=== PATIENT | female | born 1985 | race Caucasian/White ===

== ENCOUNTER 2021-04-19 10:54 | Emergency (ER) | payer BC, SELFPAY ==
[2021-04-19 11:01] VITALS: BP 133/70; PULSE 64; RESP 17; TEMP 37.1; O2SAT 100
[2021-04-19 11:36] VITALS: BP 130/74; PULSE 79; RESP 16; O2SAT 99
[2021-04-19 12:07] LABS: Basophils Percent Auto 0.5 % (0.2-1.2); Eosinophils Percent Auto 0.5 % (0-4.4); Hematocrit 35.8 % (37.0-47.0); Hemoglobin 12.3 g/dL (12.0-15.0); Immature Granulocyte Absolute 0.01 K/mm3 (0.00-0.031); Immature Granulocyte Percent A 0.2 % (0-0.5); Lymphocytes Absolute Auto 1.65 K/mm3 (0.9-3.2); Lymphocytes Percent Auto 30.1 % (18.3-44.2); Mean Corpuscular HGB Conc 34.4 g/dl (32-36); Mean Corpuscular Hemoglobin 30.8 pg (26-34); Mean Corpuscular Volume 89.5 fl (80-100); Mean Platelet Volume 9.5 fl (7.4-10.4); Monocytes Absolute Auto 0.3 K/mm3 (0.1-0.6); Monocytes Percent Auto 5.1 % (2.6-8.5); Neutrophils Absolute Auto 3.5 K/mm3 (1.3-6.7); Neutrophils Percent Auto 63.6 % (45.5-73.1); Platelet Count Result 225 k/mm3 (150-375); Red Cell Distribution Width 12.5 % (11.5-14.5); White Blood Count 5.5 K/mm3 (4.5-10.0)
--- NOTE | 2021-04-19 12:07 | ED.FEMALEGU ---
HPI - Female Genitourinary General Chief complaint: Vaginal Bleeding Stated complaint: vaginal bleeding Time Seen by Provider: 04/19/21 11:24 Source: patient Mode of arrival: ambulatory Limitations: no limitations History of Present Illness HPI Narrative: Patient is 35 years old white female presents with severe vaginal bleeding is started 4 days ago. Patient reported having light vaginal bleeding a started on April 02 and 4 days ago got worse with blood clots. Patient denies any lightheadedness, dizziness, nausea, vomiting, diarrhea, constipation, fever, chills. Patient also telling me that she been having intermittent irregular vaginal bleeding since the beginning of the year, had negative pelvic ultrasound August 2020. Patient is 1 para 1 0. Currently patient on phentermine and vitamins. Patient reports a lot of stress in the last few months and currently working in 2 jobs. Patient denies smoking or drinking. Patient was referred to us by [place] [facility] for further evaluation. Related Data Home Medications Medication Instructions Recorded Confirmed phentermine 37.5 mg PO DAILY 04/19/21 04/19/21 Allergies Allergy/AdvReac Type Severity Reaction Status Date / Time codeine Allergy Unknown HIVES Verified 04/19/21 11:40 Sulfa (Sulfonamide Allergy Unknown HIVES Verified 04/19/21 11:40 Antibiotics) Review of Systems Review of Systems: CONSTITUTIONAL: Denies fever, chills, or sweats. EYES: Denies visual changes, redness, or discharge. ENT: Denies rhinorrhea, congestion, sore throat, or otalgia. CARDIOVASCULAR: Denies chest pain, palpitations, or edema. RESPIRATORY: Denies cough or dyspnea. GASTROINTESTINAL: Denies abdominal pain, nausea, vomiting, or diarrhea. GENITOURINARY: Denies dysuria or hematuria. SKIN: Denies rash or itching. MUSCULOSKELETAL: Denies back pain, joint pain, or myalgia. NEUROLOGIC: Denies headache, numbness, or weakness. PSYCHIATRIC: Denies anxiety or depression. Exam Narrative: General appearance: Well-developed, well-nourished Skin: Normal color Head: Normocephalic, nontraumatic Eyes: Clear conjunctiva ENT: Oropharynx normal, ears normal, nose normal Neck: Supple, nontender Chest and respiratory: Airway patent, no respiratory distress, no accessory muscle use Heart: Regular rate/rhythm Abdomen: Soft, nontender, no organomegaly, quiet bowel sounds Vascular: Normal peripheral pulses, normal capillary refill. Musculoskeletal: Normal range of motion, nontender back Neurologic: Alert and oriented ?3, MILL ATTENDANT is normal as tested, no gross motor deficit : External Female Exam: normal external appearance and normal appearance of the urethra Speculum Exam - Vagina: normal appearance of the vagina Speculum Exam - Cervix: normal appearance of the cervix, Cervical os closed and Other cervical findings present (Slight vaginal bleeding, 1 long Q-tip was enough to dry the whole vaginal p) Bimanual exam- vagina & uterus: normal bimanual exam Course Course Emergency Course: Stable Consultations Consultation #1: Julia Leigh. Call tomorrow for appointment Date: 04/19/21 Time: 13:30 Vital Signs Vital signs: Vital Signs Temperature 37.1 C 04/19/21 11:01 Pulse Rate 64 04/19/21 11:01 Respiratory Rate 17 04/19/21 11:01 Blood Pressure 133/70 04/19/21 11:01 Pulse Oximetry 100 04/19/21 11:01 Temperature 37.1 C 04/19/21 11:01 Pulse Rate 79 04/19/21 11:36 Respiratory Rate 16 04/19/21 11:36 Blood Pressure 130/74 04/19/21 11:36 Pulse Oximetry 99 04/19/21 11:36 MDM - Female Genitourinary MDM Narrative Medical decision making narrative: Intermittent vaginal bleed
[2021-04-19 12:55] LABS: Beta HCG Quantitative < 2.39 mIU/ML
[2021-04-19 13:47] VITALS: BP 135/69; PULSE 72; RESP 16
[2021-04-22 06:59] LABS: HCG Tumor Marker <3 mIU/mL (***)
== END 2021-04-19 13:42 | disposition home or self-care (01) ==
PROVIDERS: Emergency Provider Emergency Medicine; PCP Nurse Practitioner Family
DX: N93.8 Other specified abnormal uterine and vaginal bleeding (principal)
CPT/HCPCS: 36415; 84702; 85025; 99284

== ENCOUNTER 2021-09-20 10:54 | Outpatient (CLI) | payer BC, SELFPAY ==
--- NOTE | 2021-09-20 11:10 | ECG_ITS ---
Measurements Intervals [place] Rate: 60 P: 29 NV: 142 QRS: 71 QRSD: 87 T: 33 QT: 366 QTc: 366 Interpretive Statements SINUS RHYTHM NO PREVIOUS ECG AVAILABLE FOR COMPARISON Electronically Signed On 09-20-2021 11:31:29 COILER by Rigo Cyr M.D.
== END 2021-09-20 10:55 | disposition home or self-care (01) ==
PROVIDERS: PCP Nurse Practitioner Family; Visit Provider Obstetrics & Gynecology
DX: E66.9 Obesity, unspecified (principal)
CPT/HCPCS: 93005

== ENCOUNTER 2023-03-07 15:32 | Outpatient (CLI) | payer BC, SELFPAY ==
--- NOTE | 2023-03-07 15:30 | ECG_ITS ---
Measurements Intervals [place] Rate: 80 P: 44 AL: 149 QRS: 79 QRSD: 89 T: 14 QT: 353 QTc: 409 Interpretive Statements SINUS RHYTHM COMPARED TO ECG 09/20/2021 11:16:48 NO SIGNIFICANT CHANGES Electronically Signed On 03-07-2023 17:20:04 CDT by Nikole Hall M.D.
[2023-03-07 16:01] LABS: Hematocrit 39.8 % (37.0-47.0); Hemoglobin 13.2 g/dL (12.0-15.0)
[2023-03-07 16:10] LABS: Anion Gap 9 mmol/L (8-16); Blood Urea Nitrogen 11 mg/dL (7-17); Calcium 9.4 mg/dL (8.4-10.2); Carbon Dioxide 25 mmol/L (22-30); Chloride 103 mmol/L (98-107); Estimated Glomerular Filt Rate > 60; Glucose 97 mg/dL (65-110); Potassium 3.9 mmol/L (3.4-5.0); Sodium 137 mmol/L (137-145)
== END 2023-03-07 15:33 | disposition home or self-care (01) ==
LOC: ANHSURGERY 15:35
PROVIDERS: Anesthesiology; PCP Nurse Practitioner Family; Visit Provider Obstetrics & Gynecology
DX: Z01.818 Encounter for other preprocedural examination (principal); R73.03 Prediabetes; D64.9 Anemia, unspecified; N93.9 Abnormal uterine and vaginal bleeding, unspecified
CPT/HCPCS: 36415; 80048; 85014; 85018; 86850; 86900; 86901; 93005

== ENCOUNTER 2023-03-09 00:25 | Day surgery (SDC) | payer BC, SELFPAY ==
[2023-03-05 15:56] VITALS: BMI 40.0
--- NOTE | 2023-03-05 16:00 | PC.NURSE ---
Report to the Outpatient Waiting Room, entrance under the green pavilion located off [facility], at time 6:00 on date 03/09/23. Planned Procedure Time: 7:30. Time changes happen often and if your time is changed the preop area will call you the afternoon before. - You and your visitor will be asked to self-screen and do not enter if you have any COVID symptoms. - A mask is optional within the hospital at this time. Patients may have clear liquids (water, carbonated beverages, clear teas, apple juice) until 3 hours prior to surgery (4:30) with a maximum of 20 ounces. - No food from midnight until time of surgery Take the following medications with a SIP of water the morning of surgery: LEXAPRO DO NOT STOP ANY OF YOUR OTHER PRESCRIPTION MEDICATIONS PRIOR TO SURGERY ?EXCEPT THE FOLLOWING Medications to discontinue per physician: VITAMINS/SUPPLEMENTS Date to take last dose: 03/05/23 Please no make-up, nail indonesian, hairspray, perfume, deodorant, or body powder the day of surgery. No jewelry (including any body piercings) or valuables the day of surgery, leave them at home. Please take a shower or bath the night before, or the morning of, surgery with an antibacterial soap. Wear comfortable, loose fitting clothing. - Jewelry must be removed prior to entering the operating room. Rings and piercings that are not removed may be cut off. - The hospital will not accept responsibility for valuables. - Please leave all valuables, including medications, at home the day of surgery. If you are going home after surgery, a licensed coal tram driver must drive you home. - NO public transportation without another adult if you receive anesthesia. - We recommend that an adult stay with you for 24 hours following discharge. - We also recommend that you do not drive, make important decision, drink alcoholic beverages, or take any drugs that were not prescribed by your health care provider for at least 24 hours after your discharge time. Follow any additional instructions given to you from your surgeon. If you or anyone in your household have experienced Covid symptoms in the past week, please notify your surgeon or the nurse liaison at the phone number below for possible testing. Telephone instructions given to PT - MAREK DAVIS and asked if any additional questions and then verbalized understanding. Patient advised to call surgeon office or pre surgery nurse liaison [phone] if any additional questions.
[2023-03-09] VITALS (12 sets, daily range): BP systolic 114–151; BP diastolic 65–86; PULSE 57–83; RESP 15–20; TEMP 36.1–37.2; O2SAT 93–100
[2023-03-09] MEDS: ACETAMINOPHEN 500 MG TABLET 1000 MG PO (06:30)
--- NOTE | 2023-03-09 06:49 | WPDANESEPPF ---
Anes - Initial Pre Proc Eval Procedure: Operation Date: 03/09/23 07:30 Proposed Procedures p Robotic Assisted Hysterectomy with Bilateral Salpingectomy - Sarthak Dash MD Date/Time: 03/09/23 06:49 Surgeon: Sarthak Dash MD Pre Op Diagnosis: abnormal uterine bleeding Patient Data Age: 37 Gender: F Height: 1.52 m Weight: 93 kg Allergies Allergy/AdvReac Type Severity Reaction Status Date / Time Sulfa (Sulfonamide Allergy Unknown HIVES Verified 03/09/23 06:28 Antibiotics) Home Medications Medication Instructions Recorded Confirmed Type cholecalciferol (vitamin D3) 125 125 mcg PO DAILY 03/05/23 03/09/23 History mcg (5,000 unit) tablet (Vitamin D3) cyanocobalamin (vitamin B-12) 1,000 mcg IM WEEKLY 03/05/23 03/09/23 History 1,000 mcg/mL injection solution escitalopram oxalate 10 mg tablet 10 mg PO DAILY 03/05/23 03/09/23 History ferrous sulfate 325 mg (65 mg 325 mg PO DAILY 03/05/23 03/09/23 History iron) tablet (Iron (ferrous sulfate)) metformin 500 mg tablet 500 mg PO DAILY 03/05/23 03/09/23 History multivitamin 1 tablet PO DAILY 03/05/23 03/09/23 History Patient hx anesthesia problems: none Family hx anesthesia problems: none Results Review: All pre-operative results and documents have been reviewed as part of the pre-operative evaluation. [facility] Past Medical History Medical History (Updated 03/09/23 @ 06:49 by Himanshu Rogers MD) Morbid obesity Pre-diabetes Surgical History Surgical History (Updated 03/09/23 @ 06:49 by Himanshu Rogers MD) H/O adenoidectomy Hx of tonsillectomy Social History Social History Smoking status: Never smoker Alcohol intake: current Drinks per week: 4 Substance use: never Substance use type: does not use Living arrangements: with family Spiritual care concerns: No Anes - Eval Final PreProcedure Day of Procedure 03/09/23 06:49 Patient weight: morbidly obese Heart: regular rate and rhythm Lungs: clear to auscultation Airway: Mallampati scale class 1 Neurological: alert and oriented Last oral intake: >/= 8 hours ASA classification: III Emergent: no Anesthetic plan: proceed Anesthesia type and monitoring: general ETT and standard monitoring Results Review: All pre-operative results and documents have been reviewed as part of the pre-operative evaluation. Informed Consent: The patient's anesthetic plan and its attendant risks and benefits were discussed with the patient/family/POA. Questions were solicited and answers provided to the satisfaction of the patient/family/POA.
[2023-03-09] MEDS: LACTATED RINGERS 1,000 ML 30 ML IV CONT (07:13)
[2023-03-09] MEDS: KETOROLAC 15 MG/ML VIAL (*BKC) IV PUSH (07:14)
[2023-03-09 07:18] LABS: Glucose Point of Care 116 mg/dl (65-105)
--- NOTE | 2023-03-09 07:48 | WPDHPUPDATE1 ---
History and Physical Update Update Date/Time: 03/09/23 07:48 History and Physical has been reviewed, including an updated exam of the patient. There are NO changes in the patient's condition. Risks, benefits, and alternatives have been discussed and questions answered. Patient agrees to proceed with procedure.
[2023-03-09] MEDS: ceFAZolin 2 GM/D5W 50 ML 2 GM/50 ML BAG IVPB (07:53)
--- NOTE | 2023-03-09 09:51 | W.PM.PROC2 ---
Procedure Note - Detailed Date of Procedure 03/09/23 Pre-op Diagnosis abnormal uterine bleeding Post-op Diagnosis Same Procedure Performed Robot assisted Total hysterectomy with bilateral salpingectomy. Surgeon Sarthak Dash MD Anesthesia General Indications heavy vaginal bleeding, pelvic pain Findings normal-appearing uterus, ovaries, and left tube, right tube was partially resected. Some scarring over the posterior cul-de-sac peritoneum. Description of Procedure This patient was taken to the operating room. She was prepped and draped in the dorsal lithotomy position after induction of general anesthesia. The uterine manipulator and Rafat cup were placed. This was done with a speculum and tenaculum. The speculum was placed. The cervix was grasped with a tenaculum. The stay sutures were placed at 3 and 9:00 a.m.. The stay sutures of 0 Vicryl were tied to the appropriately Size scope after it was slipped around the cervix.. The tip of the BONY manipulator was placed in the intrauterine cavity. The cup was slid into place around the cervix and into the fornices. It was locked into place. The sutures were then wrapped around the handle and tied under tension. A 8 mm skin incision was made in the left upper quadrant the abdomen. a 5 mm Visiport trocar was inserted into abdominal cavity and pneumoperitoneum was achieved. A 8 mm supraumbilical incision was made and a 8 mm trocar was inserted into the intrauterine cavity under direct visualization of the scope. an 8 mm incision was made in the right upper quadrant of the abdomen and an 8 mm robotic trocar was placed the inter uterine cavity under direct visualization the scope. An 11 mm trocar was inserted in the right upper quadrant of the abdomen rectal is a cystoscope after an incision was made there as well. The robot was docked. Electronic Orientation of the robot was performed. Bilateral ureteral lysis was performed. This was done from the pelvic brim down to the uterine artery. This was done with careful dissection using sharp and blunt dissection. The fallopian tubes were removed bilaterally. The mesosalpinx around the fallopian tubes were cauterized transected with LigaSure cautery. This was done in a bilateral fashion from the ovary to the uterine cornua. The fallopian tube was transected at the uterine cornu and amputated. The tube was taken out the left lower quadrant trocar site. In a stepwise fashion along the lateral aspects of the uterus the round ligament and broad ligaments were cauterized transected down to the level of the uterine arteries. A bladder flap was created in the bladder was moved distally to the end of the cervix and over the Rafat cup. The bilateral uterine arteries were cauterized and transected. Colpotomy was then performed. In a circumferential fashion the vagina was transected using unipolar cautery. The incision was made down on the Rafat cup. The uterus and cervix were taken out through the vagina. A pneumo occluder was placed in the vagina. The vaginal cuff was closed with a 0 V lock suture in a running fashion. The pelvis was irrigated with copious amounts antibiotic irrigation. The ureters were again examined and found to be intact and flowing freely under the uterine arteries into the bladder. The bladder was intact. It was examined directly. The vagina was irrigated with Betadine solution after removal of the Pneumo occluder. the trocars were removed after the robot was undocked. The skin was closed with subacute or Dermabond. The patient was taken to recovery room. She was stable condition. Sponge lap and needle counts were correct x2. Estimated Blood Loss 125 Urine Output 800 Drains Yes Packing No Pathology Yes Complications No immediate complications Condition Stable Disposition Floor
[2023-03-09] MEDS: fentaNYL CITRATE INJ (*CRX) 100 MCG/2 ML VIAL 25 MCG IV PUSH ×4 (10:30→10:53)
[2023-03-09 10:41] LABS: Glucose Point of Care 135 mg/dl (65-105)
--- NOTE | 2023-03-09 11:50 | PC.NURSE ---
This patient, Lorraine Morrison, was received from PACU via bed on 03/09/23 at 1150. Patient/family oriented to unit policies and routines.
[2023-03-09] MEDS: DEXTROSE 5%/0.45% SOD CHL 1,000 ML 125 ML IV CONT (12:36)
[2023-03-09] MEDS: KETOROLAC 30 MG/ML VIAL (*BKC) IV PUSH (12:37)
[2023-03-09] MEDS: HYDROcodone/acetaminophen (*CRX) 10-325 MG TABLET 1 TAB PO ×2 (14:07→19:15)
[2023-03-09] MEDS: IBUPROFEN 600 MG TABLET PO (19:15)
[2023-03-09] MEDS: metFORMIN HCL 500 MG TABLET PO (19:15)
[2023-03-09] MEDS: DOCUSATE SODIUM 100 MG CAPSULE (19:15)
[2023-03-10 04:00] VITALS: BP 113/59; PULSE 96; RESP 16; TEMP 37.2; O2SAT 98
[2023-03-10] MEDS: HYDROcodone/acetaminophen (*CRX) 5-325 MG TABLET 1 TAB PO ×2 (04:12→11:36)
[2023-03-10] MEDS: IBUPROFEN 600 MG TABLET PO ×2 (04:12→11:35)
[2023-03-10] MEDS: DEXTROSE 5%/0.45% SOD CHL 1,000 ML 125 ML IV CONT (04:13)
--- NOTE | 2023-03-10 07:13 | PM.GYNPNOP ---
INSURANCE COUNSELOR - A/P Postoperative Procedures: Procedures Operation Date: 03/09/23 07:30 Actual Procedure Side Surgeon p Robotic Assisted Hysterectomy with Bilateral Salpingectomy Bilateral Sarthak Dash MD Postoperative day: 1 Postoperative status: doing well Postoperative plan: see orders Time Spent With Patient Time: Total time spent is greater than 50% in coordination of care (as documented) at patient's floor/unit and/or counseling patient: Time with patient: less than 15 minutes INSURANCE COUNSELOR- PN:Subj Post-Op Subjective Date/time seen: 03/10/23 07:13 Subjective: patient reports feeling better, patient has no complaints and pain is well controlled Exam Const: General: healthy appearing, comfortable and no acute distress Resp: Auscultation: clear to auscultation bilaterally, no rales, no rhonchi and no wheezes Cardio: Rate: regular rate Heart sounds: no click, no murmurs and no rubs GI: Inspection: non-distended Auscultation: normal bowel sounds Extrem: General: normal to inspection, no pedal edema and no calf tenderness INSURANCE COUNSELOR - PN: Obj Data Vital Signs Vital Signs: Vital Signs - 24 hr 03/09/23 07:19 03/09/23 10:01 03/09/23 10:15 Temperature 97.9 F 97 F L Pulse Rate 71 69 68 Respiratory Rate 16 20 20 Blood Pressure 118/79 129/71 114/68 Pulse Oximetry 99 100 95 Oxygen Delivery Room Air Simple Face Mask Room Air Oxygen Flow Rate 10 03/09/23 10:30 03/09/23 10:45 03/09/23 11:00 Temperature Pulse Rate 62 62 62 Respiratory Rate 20 19 18 Blood Pressure 134/66 124/75 138/78 Pulse Oximetry 93 93 94 Oxygen Delivery Room Air Room Air Room Air Oxygen Flow Rate 03/09/23 11:15 03/09/23 11:30 03/09/23 11:40 Temperature Pulse Rate 65 83 63 Respiratory Rate 19 20 15 Blood Pressure 136/82 147/86 H 151/82 H Pulse Oximetry 93 95 95 Oxygen Delivery Room Air Room Air Room Air Oxygen Flow Rate 03/09/23 11:55 03/09/23 15:30 03/09/23 19:30 Temperature 98.7 F 98.9 F 98.2 F Pulse Rate 57 L 73 58 L Respiratory Rate 16 18 16 Blood Pressure 139/71 126/65 131/79 Pulse Oximetry 96 97 Oxygen Delivery Oxygen Flow Rate 03/09/23 19:30 03/10/23 04:00 03/10/23 04:00 Temperature 99.0 F Pulse Rate 58 L 96 96 Respiratory Rate 16 16 16 Blood Pressure 113/59 L Pulse Oximetry 97 98 98 Oxygen Delivery Room Air Oxygen Flow Rate Intake/Output Intake/Output: Intake & Output 03/07/23 03/08/23 03/09/23 03/10/23 23:59 23:59 23:59 23:59 Intake Total 2030 Output Total 1145 600 Balance 885 -600 Meds/Results Medications: Active Medications Generic Name Dose Route Start Last Admin Trade Name Freq PRN Reason Stop Dose Admin Hydrocodone Bitart/Acetaminophen 1 tab 03/09/23 11:47 03/10/23 04:12 Hydrocodone/Acetaminophen (*Crx) 5-325 Mg Tablet PO 1 tab Q3H PRN Administration Pain Rated 5 or Less Hydrocodone Bitart/Acetaminophen 1 tab 03/09/23 11:47 03/09/23 19:15 Hydrocodone/Acetaminophen (*Crx) 10-325 Mg Tablet PO 1 tab Q3H PRN Administration Pain Rated 6 or Greater Escitalopram Oxalate 10 mg 03/09/23 13:00 03/09/23 18:11 Escitalopram Oxalate 10 Mg Tablet PO Not Given DAILY NICOLAS Ibuprofen 600 mg 03/09/23 11:47 03/10/23 04:12 Ibuprofen 600 Mg Tablet PO 600 mg Q6H PRN Administration Cramping Ketorolac Tromethamine 30 mg 03/09/23 11:47 03/09/23 12:37 Ketorolac 30 Mg/Ml Vial (*Bkc) IV PUSH 03/14/23 11:46 30 mg Q6H PRN Administration Pain Rated 4-6 Metformin HCl 500 mg 03/09/23 12:00 03/09/23 19:15 Metformin Hcl 500 Mg Tablet PO 500 mg DAILY NICOLAS Administration Naloxone HCl 0.1 mg 03/09/23 11:47 Naloxone Hcl 0.4 Mg/Ml Vial IV PUSH Q2M PRN Respiratory rate less than 10 Ondansetron HCl 4 mg 03/09/23 11:47 Ondansetron Inj 4 Mg/2 Ml Vial IV PUSH Q6H PRN Nausea And Vomiting Labs Labs: Laboratory Results - last 24 hr 03/09/23 03/09/23 07:16 10:17 POC Ca
[2023-03-10 08:00] VITALS: BP 125/61; PULSE 69; RESP 18; TEMP 36.8; O2SAT 97
--- NOTE | 2023-03-10 08:00 | PC.NURSE ---
PT introductions made and plan of care discussed per post op hand touch up painter surgery, pain management, daily care activities and pending discharge to home. PT sole recipient of such instructions and no barriers to learning identified at this time. PT received such instructions via one to one discussion and demonstrations this shift. PT verbalized understanding of such care.
--- NOTE | 2023-03-10 10:48 | WPDANESPN ---
Anes - Prog Note Post-Op Date/Time: 03/10/23 10:48 Cardiovascular status: normal Respiratory status: normal Airway patency: baseline Mental status: baseline Post-Op hydration status: normal Vital Signs: Last Vital Signs Temp 37.2 C 03/10/23 04:00 Pulse 96 03/10/23 04:00 Resp 16 03/10/23 04:00 BP 113/59 L 03/10/23 04:00 Pulse Ox 98 03/10/23 04:00 O2 Del Method Room Air 03/09/23 19:30 O2 Flow Rate 10 03/09/23 10:01 Pain Score (VAS): 0 I/O: Intake & Output 03/09/23 03/10/23 03/10/23 23:59 07:59 15:59 Intake Total 1780 Output Total 305 600 Balance 1475 -600 03/09/23 10:17 POC Capillary Glucose 135 H Post-procedural complaints: none Patient Feedback: Patient satisfied with anesthetic care.
--- NOTE | 2023-03-10 11:50 | PC.NURSE ---
PT discharged to home ambulatory accompanied by spouse and walked to waiting car. Follow up appts confirmed
== END 2023-03-10 11:50 | disposition home or self-care (01) ==
LOC: ANHSURGERY 06:20 → ANHOB2 11:48
PROVIDERS: PCP Nurse Practitioner Family; Visit Provider Obstetrics & Gynecology
PROC: (CPT 58571; principal; 2023-03-09 07:30)
DX: N93.9 Abnormal uterine and vaginal bleeding, unspecified (principal); N80.03 Adenomyosis of the uterus; N80.00 Endometriosis of the uterus, unspecified; N72 Inflammatory disease of cervix uteri; D25.1 Intramural leiomyoma of uterus; N83.8 Other noninflammatory disorders of ovary, fallopian tube and broad ligament; N80.209 Endometriosis of unspecified fallopian tube, unspecified depth; R10.2 Pelvic and perineal pain; R73.03 Prediabetes; E66.01 Morbid (severe) obesity due to excess calories; Z68.41 Body mass index [BMI] 40.0-44.9, adult
CPT/HCPCS: 58571; S2900; 82948; 88307; 99199; A9270; J0690; J1100; J1170; J1885; J2250; J2405; J2704; J3010; J7030; J7120

== ENCOUNTER 2024-09-29 09:45 | Outpatient (CLI) | payer BC, SELFPAY ==
--- NOTE | ~2024-09-29 | MR_ITS ---
MR breast BI wo/w con 09/29/2024 11:32 CDT INDICATION: Palpable left breast lump TECHNIQUE: MRI of the breasts perform using standard protocol pre-and post IV contrast with the follo wing sequences: Axial T2 STIR, axial T1, axial vibrant T1 with fat suppression precontrast and multip hasic postcontrast. 18 cc MultiHance administered intravenously COMPARISON: Comparison to multiple prior studies sequentially, with oldest reviewed study dated 04/16. FINDINGS: There are scattered areas of fibroglandular content. There are no abnormalities on the pre contrast sequences. There is moderate background parenchymal enhancement. No enhancing lesions follo wing contrast administration. No areas of enhancement meeting threshold criteria on CAD analysis. N o evidence of signal abnormalities in the axillary or internal mammary node distributions. LEFT BREAST: No signal abnormalities on precontrast sequences. There is mild background parenchymal enhancement. No enhancing lesions following contrast administration. No areas of enhancement meeti ng threshold criteria on CAD analysis. No evidence of signal abnormalities in the axillary or inter nal mammary node distributions.] IMPRESSION: 1: Right breast: Negative. No evidence of malignancy. 2: Left breast: Negative. No evidence of malignancy. Recommend correlation with diagnostic bilateral mammogram and left breast ultrasound. BI-RADS CATEGORY 0 - INCOMPLETE STUDY, NEED ADDITIONAL IMAGING EVALUATION. Reviewed, dictated and finalized at location B. IMPRESSION: 1: Right breast: Negative. No evidence of malignancy. 2: Left breast: Negative. No evidence of malignancy. Recommend correlation with diagnostic bilateral mammogram and left breast ultra sound. BI-RADS CATEGORY 0 - INCOMPLETE STUDY, NEED ADDITIONAL IMAGING EVALUATION.
--- OUTSIDE RECORDS SUMMARY | 2024-09-29 10:59 | XMS_ITS | Referral Summary ---
Author Organization [facility] Address [address] [place] [address] Care Team Providers Care Sample Box Maker Name Role Phone Alexia Alfredo MD Unavailable [phone] Victorino Clark DO Primary Care Provider [phone] Allergies No known active allergies Medications venlafaxine XR (EFFEXOR-XR) 37.5 mg 24 hr capsule venlafaxine ER 37.5 mg capsule,extended release 24 hr TAKE 1 CAPSULE BY MOUTH EVERY DAY Active cholecalciferol , vitamin D3, (VITAMIN D3 ORAL) 50mcg daily Active TURMERIC ORAL Take by mouth daily Active multivitamin (MULTI-DAY ORAL) Take by mouth daily Active Active Problems Problem Noted Date Diagnosed Date Breast lump in female 08/12/2020 Social History Tobacco Use Types Packs/Day Years Used Date Smoking Tobacco: Never Smokeless Tobacco: Never Alcohol Use Standard Drinks/Week Comments Yes 0 (1 standard drink = 0.6 oz pur e alcohol) socially Personal Safety Answer Date Recorded Getting School Help Needed Not on file 09/28 Comments Unknown Sex and Gender Information Value Date Recorded Sex Assigned at Not on file Legal 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 Gender Identity Not on file Sexual Orientation Not on file Last Filed Vital Signs Vital Sign Reading Time Taken Comments Blood Pressure - - Pulse - - Temperature - - Respiratory Rate - - Oxygen Saturation - - Inhaled Oxygen Concentration - - Weight 83.9 kg (185 lb) 08/12/2020 8:21 AM UNION STEWARD Height 152.4 cm (5') 08/12/2020 8:21 AM UNION STEWARD Body Mass Index 36.13 08/12/2020 8:21 AM UNION STEWARD Plan of Treatment Not on file Insurance [employer] [place] [employer] [place] [employer] [place] Care Teams Sample Box Maker Relationship Specialty Start Date End Date Victorino Clark DO [address] [place] [address] PCP - General Family Medicine 06/24/24 Alexia Alfredo MD Referring Physician Obstetrics and Gynecology 08/12/20
--- OUTSIDE RECORDS SUMMARY | 2024-09-29 10:59 | XMS_ITS | Clinical Summary ---
Author Organization [facility] Address [address] [place] [address] Care Team Providers Care Assembler Bonding Name Role Phone Alexia Alfredo MD Unavailable [phone] Victorino Clark DO Primary Care Provider [phone] Allergies No known active allergies Medications venlafaxine [...] Diagnosed Date Breast lump in female 08/12/2020 Family History Medical History Relation Name Comments Prostate cancer Father cancer mets Father's Brother Lung cancer Mother Small cell lung cancer Relation Name Status Comments Father Father's Brother Mother Social History Tobacco Use Types Packs/Day Years [...] on file 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 Gender Identity Not on file Sexual Orientation Not on file Obstetrics History Last Filed Vital Signs Vital Sign Reading Time Taken Comments Blood Pressure - - Pulse - - Temperature - - Respiratory Rate - - Oxygen Saturation - - Inhaled Oxygen Concentration - - Weight 83.9 kg (185 lb) 08/12/2020 8:21 AM PUBLIC SERVICE DIRECTOR Height 152.4 cm (5') 08/12/2020 8:21 AM PUBLIC SERVICE DIRECTOR Body Mass Index 36.13 08/12/2020 8:21 AM PUBLIC SERVICE DIRECTOR Plan of Treatment Not on file Insurance [employer] [place] [employer] [place] Care Teams Assembler Bonding Relationship Specialty Start Date End Date Victorino Clark DO [address] [place] [address] PCP - General Family Medicine 06/24/24 Alexia Alfredo MD Referring Physician Obstetrics and Gynecology 08/12/20
--- OUTSIDE RECORDS SUMMARY | 2024-09-29 10:59 | XMS_ITS | Data Portability ---
Author Organization [facility] Address [address] [place] [address] Care Team Providers Care Director Of Industrial Relations Name Role Phone DANIELDEVI Primary Care Provider Assessment Encounter Date Assessment Date Assessment LastModified by Organization Details LastModified Time 06/09/2024 06/09/2024 Annual gynecological exam performed. Patient will come back in a year unless there are new symptoms. [email or web address] Not available 06/09/2024 09:33:26 Plan of Treatment Reminders Order Date Submit Date Provider Last Modified By Organization Details Last Modified Time Details Appointments None recorded. Lab None recorded. Referral None recorded. Procedures None recorded. Surgeries robotic assisted hysterectom y with salpingecto my (SURG) 2022 023 [facility], [facility] [address], [address], 3 11:03:31 Imaging MAMMO, diagnostic, digital, bilateral - left breast lump, present since 2020, around 2oclock 2023 024 [facility], [address] [place], [address], 5 14:54:11 US, breast, unilateral 2023 024 [facility], [address] [facility], [place], [address], 4 04:03:37 Medication Orders None recorded. Patient TargetsNo targets recorded. Patient InstructionsNo instructions recorded. Reason for Referral None Reported. Results Created Date Observation Date Name Description Value Unit Range Abnormal Flag Note LastModifiedBy Organization Detail LastModifiedTime 06/09/2006/09/2024 WOMEN 'S HEALT H SWAB, TRUMAN lisa species, tma Negati ve negati ve Not Available [facility] (Lab) [address] [place], [address], 06/10/2024 11:40:20 06/09/20 24 06/09/2024 WOMEN 'S HEALT H SWAB, TRUMAN lisa glabrata, tma Negati ve negati ve Not Available [facility] (Lab) [address] [facility], [place], [address], 06/10/2024 11:40:20 06/09/2006/09/2024 WOMEN 'S HEALT H SWAB, TRUMAN trichomonas vaginalis, tma Negati ve negati ve This assay tests for and diffe renti atekathleen garza en Teri da glabr marisol, the Teri da speci es group (C. albic ans, C. tropi calis , C. parap riley is, C. dubli niens is), and Trich omona s vagin timo by Trans cript ion-M ediat ed Ampli ficat ion (TMA) . Not Available [facility] (Lab) [address] [place], [address], 06/10/2024 11:40:20 06/09/20 24 06/09/2024 WOMEN 'S HEALT H SWAB, TRUMAN bacterial vaginosis (bv), tma Negati ve negati ve This test detec ts ribos omal RNA from bacte geovanna assoc iated with bacte rial vagin osis (BV), inclu ding Lacto bacil debbi (L. gasse ri, L. crisp atus and L. jense my), Gardn erell a vagin timo, and Atopo bium vagin ae by Trans cript ion-M ediat ed Ampli ficat ion (TMA) . A singl e quali tativ e resul t is repor oleg based on instr ument softw are to deter mine BV posit sandra or negat sandra statu s. Not Available [facility] (Lab) [address], [place], [address], 06/10/2024 11:40:20 11/11/19 23 11/10/2022 US, pelvi s No observ ation record ed. [email or web address] [facility] [address], [place], [address], 11/10/2022 17:22:07 11/11/19 23 11/10/2022 US, trans vagin al No observ ation record ed. [email or web address] [facility] [address], [place], [address], 11/10/2022 17:21:33 11/11/19 23 11/10/2022 US, pelvi s No observ ation record ed. [email or web address] [address], [place], [address], 11/11/2022 20:32:32 09/02/19 25 09/02/2024 MAMMO , diagn ostic , digit al, bilat eral No observ ation record ed. [address] [place], [address], 09/09/2024 18:59:03 09/04/19 25 09/04/2024 imagi ng/di agnos tic resul t No observ ation record ed. [address] [place], [address], 09/15/2024 17:09:10 Result Notes None recorded. Problems Name Problem SNOMED Code Status Onset Date Resolution Date Notes Provider Name and Address Organization Details Recorded Time Skin AND/OR mucosa finding 077660643 Completed 201407/28/2020 Unsp viral infectio n with skin and mucous membrane lesions; Practice ID: 0001 Alexia Alfredo MD [address], [place], [address], [facility] 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 15:03:24 Disorder of breast 03398611 Completed 201607/28/2020 Disorder of breast, unspecif ied;Prac radha ID: 0001 Alexia Alfredo MD [address], [place], [address], [facility] 15:02:57 Abdomina l bloating [id number] Completed 201708/04/2020 Abdomina l distensi on (gaseous );Practi ce ID: 0001 Alicia kam, [facility] 15:30:21 Hemorrha ge of rectum and anus [id number] Completed 201807/28/2020 Hemorrha ge of anus and rectum;P ractice ID: 0001 Alxeia Alfredo MD [address], [place], [address], [facility] 15:03:04 Atypical squamous cells of undeterm ined signific ance on cervical Papanico laou smear [id number] Completed 201408/04/2020 Papanico laou smear of cervix with atypical squamous cells of undeterm ined signific ance (ASC-US) ;Recorde d Elsewher e: No Locat ion: Brigid henriquez [facility] S ource: EHR Zumba Instructor brent: N Practi ce ID: 0001 Dominick lable Time: 02:56:27 PM Alicia kam [facility] 15:30:26 Abdomina l pain 24161610 Completed 201208/04/2020 Abdomina l pain, other specifie d site;Rec orded Elsewher e: No Locat ion: [facility] S ource: EHR Zumba Instructor brent: N Kwameti ce ID: 0001 Dominick lable Time: 08:30:00 AM Alicia kam, [facility] 15:30:23 Speciali zed medical examinat ion Completed 201107/28/2020 Gynecolo gical Examinat ion;Geo rded Elsewher e: No Locat ion: [facility] S ource: EHR Zumba Instructor brent: N Kwameti ce ID: 0001 Dominick lable Time: 03:30:00 PM Alexia Alfredo MD [address], [place], [address], [facility] 15:03:[address] Concept Completed 201807/28/2020 Encntr for general adult medical exam w/o abnormal findings ;Recorde d Elsewher e: No Locat ion: [facility] S ource: EHR Zumba Instructor brent: N Kwameti ce ID: 0001 Dominick lable Time: 08:15:00 AM Alexia Alfredo MD [address], [place], [address], [facility] 15:03:21 Breast lump [id number] Completed 201608/04/2020 Unspecif ied lump in breast;R ecorded Elsewher e: No Locat ion: [facility] S ource: EHR Zumba Instructor brent: N Practi ce ID: 0001 Dominick lable Time: 09:30:00 AM Alicia kam [facility] 15:30:27 Anxiety state 128940943 Completed 201308/04/2020 Anxiety; Recorded Elsewher e: No Locat ion: [facility] S ource: EHR Zumba Instructor brent: N Practi ce ID: 0001 Dominick lable Time: 10:30:00 AM Alicia Pereyra negin, [facility] 1 15:30:24 Adult health examinat ion Completed 201407/28/2020 ROUTINE MEDICAL EXAM;Rec orded Elsewher e: No Locat ion: Brigid [facility] S ource: EHR Zumba Instructor brent: N Marjan ce ID: 0001 Dominick lable Time: 03:45:00 PM Alexia Alfredo MD [address], [place], [address], [facility] 1 15:02:50 Screenin g for malignan t neoplasm of cervix Completed 201107/28/2020 Screenin g for malignan t neoplasm s of the cervix;R ecorded Elsewher e: No [facility] S ource: EHR Zumba Instructor brent: Esau Phillip ce ID: 0001 Dominick lable Time: 03:30:00 PM Alexia Alfredo MD [address], [place], [address], [facility] 1 15:03:13 Vaginiti s and vulvovag initis Completed 201207/28/2020 Vaginiti s;Record ed Elsewher e: No Locat ion: [facility] S ource: EHR Zumba Instructor brent: Esau Phillip ce ID: 0001 Dominick lable Time: 08:30:00 AM Alexia Alfredo MD [address], [place], [address], [facility] 1 15:03:51 Abnormal weight gain 345460933 Completed 201107/28/2020 Abnormal weight gain;Rec orded Elsewher e: No [facility] E[facility] Zumba Instructor brent: Esau Phillip ce ID: 0001 Dominick lable Time: 03:30:00 PM Alexia Alfredo MD [address], [place], [address], [facility] 15:02:48 Malaise and fatigue 229000017 Completed 201107/28/2020 Fatigue / Malaise; Recorded Elsewher e: No Locat ion: Brigid henriquez [facility] S ource: EHR Zumba Instructor brent: N Practi ce ID: 0001 Dominick lable Time: 03:30:00 PM Alexia Alfredo MD [address], [place], [address], [facility] 15:03:07 Urinary tract infectio us disease 82392922 Completed 201007/28/2020 Urinary tract infectio n, site not specifie d;Practi ce ID: 0001 Alexia Alfredo MD [address], [place], [address], [facility] 15:03:36 Family planning surveill ance Completed 201007/28/2020 Contrace ptive surveill ance, unspecif ied;Prac radha ID: 0001 Alexia Alfredo MD [address], [place], [address], [facility] 15:03:00 Pregnanc y test negative [id number] Completed 201007/28/2020 Negative Pregnanc y Test;Pra ctice ID: 0001 Alexia Alfredo MD [address], [place], [address], [facility] 15:03:10 Postcoit al bleeding 84215373 Completed 202002/02/2021 Shaista kam, [facility] 1 10:04:52 Herpes simplex 00440296 Completed 202012/08/2021 Hx HSV-1 Cold sores Zabrina kam, [facility] 17:54:15 Prediabe henry 030202593 Active 2021 Shlomo Dash MD [address], [place], [address], [facility] 14:46:22 Mixed anxiety and depressi ve disorder 376339961 Active 2023 Lorna kam [facility] 09:35:56 Problem Notes None recorded. Procedures Surgical History Date Name Laterality Status Provider Name and Address Organization Details Recorded Time 024 Date of Last Pap Smear completed Lorna Nguyen [facility] 06/09/2024 09:36:54 023 ROBOTIC ASSISTED HYSTERECTOMY WITH SALPINGECTOMY (SURG) completed Greer Young [facility] 03/12/2023 10:37:46 022 Endometrial Biopsy completed Shlomo Dash MD [address], [place], [address], [facility] 10/24/2021 11:34:08 022 Date of Last Mammogram completed Tiera Chambers [facility] 09/02/2021 09:44:18 021 Endometrial Biopsy completed Shlomo Dash MD [address], [place], [address], [facility] 04/21/2021 12:19:13 016 Tonsillectomy completed Lorna Nguyen [facility] 06/09/2024 09:42:12 001 Caesarean Section completed Tiera Chambers [facility] 11/17/2022 09:45:58 991 adenomyomectomy completed Lorna Nguyen [facility] 06/09/2024 09:41:43 990 procedure on ear completed Lorna Nguyen [facility] 06/09/2024 09:41:21 cryotherapy completed WAGNER Reddy [address], [place], [address], [facility] 06/09/2024 10:41:47 Imaging Results Imaging Date Name Status LastModified by Organization Details LastModified Time 11/10/2022 US, pelvis completed [email or web address] [facility] [address], [place], [address], 11/10/2022 17:22:07 11/10/2022 US, transvaginal completed [email or web address] [facility] [address], [place], [address], 11/10/2022 17:21:33 11/10/2022 US, pelvis completed [email or web address] [address], [place], [address], 11/11/2022 20:32:32 09/02/2024 MAMMO, diagnostic, digital, bilateral completed [address] [place], [address], 09/09/2024 18:59:03 09/04/2024 imaging/diagnost ic result completed [address] [place], [address], 09/15/2024 17:09:10 Procedure Notes None recorded. Medical Equipment None Reported. Allergies Allergen ID Allergen Name Allergen Category Reaction Reaction Severity Criticality Documentation Date Start Date Code Code System Note Provider Name and Address Organization Details Recorded Time 50940 sulfameth oxazole medicatio n Not available Not available Not available 07/02/2020 79167 RxNorm Comme nt: [facility]at [facility]: [facility] 15:36:25 641 codeine medicatio n Not available Not available Not available 12/02/2019 2670 RxNorm Shaista Randolph [facility], [facility] 3 12:25:16 642 Substance with sulfonami de structure and antibacte rial mechanism of action (substanc e) medicatio n Not available Not available Not available 12/02/2019 60722 8003 SNOMED [facility] 0 09:27:33 643 trimethop rim medicatio n Not available Not available Not available 12/02/2019 11156 RxNorm [facility] 1 10:04:33 Medications Name Sig Start Date Stop Date Status Note LastModified by Organization Details LastModified Time metformin 500 mg tablet TAKE 1 TABLET BY MOUTH EVERY DAY 11/08 completed Not Available Not Available Not Available venlafaxi ne ER 37.5 mg capsule,e xtended release 24 hr TAKE 1 CAPSULE BY MOUTH EVERY DAY 09/13 completed Not Available Not Available Not Available trazodone 50 mg tablet Take 1 tablet every day by oral route at bedtime. 11/08 completed Not Available Not Available Not Available azithromy canelo 250 mg tablet TAKE BY MOUTH DIRECTED 09/13 completed Not Available Not Available Not Available citalopra m 10 mg/5 mL oral solution take 10 millilit er by oral route every day 09/05 completed Prescrib ed Elsewher e: Yes Loca tion: Brigid henriquez [facility] M odify By: dayhar tz Encou nter DateTime : 09/03/19 12 09:55:50 AM Not Available Not Available Not Available metronida zole 0.75 % (37.5 mg/5 gram) vaginal gel INSERT ONE APPLICAT ORFUL VAGINALL Y AT BEDTIME FOR 5 DAYS 09/13 completed Not Available Not Available Not Available clobetaso l 0.05 % topical cream APPLY A THIN LAYER TO THE AFFECTED AREA TWICE DAILY FOR UP TO 14 DAYS 09/13 completed Not Available Not Available Not Available phentermi ne 15 mg capsule TAKE 1 CAPSULE BY MOUTH DAILY 2 HOURS AFTER BREAKFAS T active Not Available Not Available No t Available promethaz ine 6.25 mg-codein e 10 mg/5 mL syrup TAKE 5 ML BY MOUTH EVERY 6 HOURS NEEDED 09/13 completed Not Available Not Available Not Available topiramat e 25 mg tablet TAKE 1 TABLET BY MOUTH EVERY DAY 11/08 completed Not Available Not Available Not Available phentermi ne 37.5 mg tablet TAKE 1 TABLET BY MOUTH DAILY IN THE MORNING 09/13 completed Not Available Not Available Not Available omeprazol e 40 mg capsule,d elayed release take 1 capsule by oral route every day before a meal 11/07 completed Prescrib ed Elsewher e: Yes Loca tion: [facility] odify By: abby Henriquez ncounter DateTime : 11/07/19 18 03:30:00 PM Not Available Not Available Not Available Mircette (28) 0.15 mg-0.02 mg (21)/0.01 mg (5) tablet take 1 tablet by oral route every day 07/22 completed Prescrib ed Elsewher e: No Locat ion: [facility] odify By: enid hernandez DateTime : 09/05/19 12 03:30:00 PM Not Available Not Available Not Available amitripty line 50 mg tablet take 1 tablet (50MG) by oral route every day at bedtime 10/26 completed Prescrib ed Elsewher e: No Locat ion: [facility] odify By: gomez hernandez DateTime : 10/23/19 14 08:30:00 AM Not Available Not Available Not Available phentermi ne 30 mg capsule TAKE 1 CAPSULE BY MOUTH EVERY DAY 11/08 completed Not Available Not Available Not Available Macrobid 100 mg capsule take 1 capsule (100MG) by oral route every 12 hours with food 02/02 completed Prescrib ed Elsewher e: No Locat ion: [facility] odify By: [email or web address] Encount er DateTime : 01/25/20 13 10:24:51 AM Not Available Not Available Not Available oxycodone -acetamin ophen 5 mg-325 mg tablet TAKE 1 TABLET BY MOUTH EVERY 4 HOURS NEEDED FOR PAIN 06/09 completed Not Available Not Available Not Available amitripty line 25 mg tablet take 1 tablet (25MG) by oral route every day at bedtime 10/22 completed Prescrib ed Elsewher e: No Locat ion: Sigifredo florence [facility] odify By: nickolas tz Encou nter DateTime : 10/23/19 14 08:30:00 AM Not Available Not Available Not Available dexametha sone 1 mg tablet TAKE 1 TABLET BY MOUTH AT 10 PM THE NIGHT BEFORE 8 AM CORTISOL 06/09 completed Not Available Not Available Not Available Flagyl 500 mg tablet Take 1 tablet every 12 hours by oral route for 7 days. 08/04 completed Not Available Not Available Not Available cyanocoba bibi (vit B-12) 1,000 mcg/mL injection solution ADMINIST ER 1 ML UNDER THE SKIN EVERY WEEK IN THE MORNING 06/09 completed Not Available Not Available Not Available Prozac 20 mg capsule take 1 capsule (20MG) by oral route every day in the morning 07/22 completed Prescrib ed Elsewher e: No Locat ion: [facility] odify By: enid hernandez DateTime : 09/05/19 12 03:30:00 PM Not Available Not Available Not Available progester one micronize d 200 mg capsule TAKE 1 CAPSULE BY MOUTH EVERY DAY FOR 12 DAYS 09/13 completed Not Available Not Available Not Available Valtrex 1 gram tablet take 1 tablet by oral route every 12 hours 07/28 completed Prescrib ed Elsewher e: No Locat ion: [facility] odify By: speedy hernandez DateTime : 02/15/20 18 12:13:05 PM Not Available Not Available Not Available insulin syringe U-100 with needle 1 mL 31 gauge x 5/16 USE TO INJECT B12 SUBCUTAN EOUSLY ONCE WEEKLY 06/09 completed Not Available Not Available Not Available zolpidem 5 mg tablet 07/28 completed Not Available Not Available Not Available norethind ivelisse acetate 5 mg tablet TAKE 1 TABLET BY MOUTH EVERY DAY 10/24 completed Not Available Not Available Not Available methylpre dnisolone 4 mg tablets in a dose pack FOLLOW PACKAGE DIRECTIO NS 09/13 completed Not Available Not Available Not Available metformin ER 500 mg tablet,ex tended release 24 hr TAKE 1 TABLET BY MOUTH EVERY DAY AT DINNER 06/09 completed Not Available Not Available Not Available sertralin e 50 mg tablet take 1 tablet by oral route every day 11/07 completed Prescrib ed Elsewher e: Yes Loca tion: Brigid henriquez [facility] odify By: abby Henriquez ncounter DateTime : 11/07/19 18 03:30:00 PM Not Available Not Available Not Available dextroamp hetamine- amphetami ne 5 mg tablet TK 1 T PO BID 07/28 completed Not Available Not Available Not Available amoxicill in 875 mg-potass ium clavulana te 125 mg tablet TAKE 1 TABLET BY MOUTH TWICE DAILY 06/09 completed Not Available Not Available Not Available neomycin- polymyxin -hydrocor t 3.5 mg-10,000 unit/mL-1 % ear drops,janeth p SHAKE LIQUID AND INSTILL 2 DROPS IN BOTH EARS FOUR TIMES DAILY FOR 7 DAYS 06/09 completed Not Available Not Available Not Available Vitamin And Mineral capsule Take by oral route. active Not Available Not Available No t Available Vitamins and Minerals tablet 08/04 completed Prescrib ed Elsewher e: Yes Loca tion: Brigid henriquez [facility] odify By: cmedical Encount er DateTime : 02/24/20 14 08:45:00 AM Not Available Not Available Not Available escitalop zac 10 mg tablet TAKE 1 TABLET BY MOUTH EVERY DAY active Not Available Not Available No t Available Vitamin B-12 50 mcg lozenges 10/02 completed Prescrib ed Elsewher e: Yes Loca tion: Brigid henriquez [facility] odify By: gmedical Encount er DateTime : 09/09/19 13 03:30:00 PM Not Available Not Available Not Available Zovirax 5 % topical cream apply by topical route 5 times every day to the affected area(s) 07/28 completed Prescrib ed Elsewher e: No Locat ion: Brigid henriquez [facility] odify By: speedy hernandez DateTime : 05/28/20 03:02:30 PM Not Available Not Available Not Available bupropion HCl XL 150 mg 24 hr tablet, extended release TAKE ONE TABLET DAILY 11/08 completed Not Available Not Available Not Available topiramat e 50 mg tablet TAKE 1 TABLET BY MOUTH EVERY DAY 11/08 completed Not Available Not Available Not Available Zovirax 07/28 completed Not Available Not Available Not Available Valtrex 07/28 completed Not Available Not Available Not Available Lo Loestrin Fe 1 mg-10 mcg (24)/10 mcg (2) tablet TAKE 1 TABLET BY MOUTH EVERY DAY WITH MEALS 06/09 completed Not Available Not Available Not Available Victoza 2-Zohaib 0.6 mg/0.1 mL (18 mg/3 mL) subcutane ous pen injector INJECT 1.8 MG UNDER THE SKIN EVERY DAY 11/08 completed Not Available Not Available Not Available Dyanavel XR 2.5 mg/mL oral 24 hr extended release suspensio n 07/28 completed Prescrib ed Elsewher e: Yes Loca tion: [facility] M odify By: marixa hughes DateTime : 11/07/19 03:30:00 PM Not Available Not Available Not Available Dyanavel XR 07/28 completed Not Available Not Available Not Available Slynd 11/08 completed Not Available Not Available Not Available Mounjaro 5 mg/0.5 mL subcutane ous pen injector Inject 5 mg by subcutan eous route. active Not Available Not Available No t Available Vitals Date Recorded Body height Body mass index (BMI) Body weight Systolic blood pressure Diastolic blood pressure Provider Name and Address Organization Details Last Updated DateTime 11/17/2022 152.4 cm 37.9 kg/m2 21771.92 g 117 mm[Hg] 81 mm[Hg] Tiera Chambers [facility] 3 09:45:54 Date Recorded Body height Body mass index (BMI) Body weight Systolic blood pressure Diastolic blood pressure Provider Name and Address Organization Details Last Updated DateTime 02/26/2023 152.4 cm 40 kg/m2 13798.44 g 134 mm[Hg] 84 mm[Hg] Tiera [facility] 3 11:53:14 Date Recorded Body height Body mass index (BMI) Body weight Systolic blood pressure Diastolic blood pressure Provider Name and Address Organization Details Last Updated DateTime 03/16/2023 152.4 cm 39.6 kg/m2 16861.25 g 114 mm[Hg] 77 mm[Hg] Tiera Chambers [facility] 3 09:35:00 Date Recorded Body height Body mass index (BMI) Body weight Systolic blood pressure Diastolic blood pressure Provider Name and Address Organization Details Last Updated DateTime 06/09/2024 152.4 cm 43.7 kg/m2 333663.6 9 g 119 mm[Hg] 86 mm[Hg] Lorna Wendy [facility] 4 09:34:03 Social History Question Answer Notes LastModified by Organizat ion Details LastModified Time Tobacco Smoking Status Never Smoker Chula Rucker negin, [facility] 03/16/2023 09:30:03 Do You Have An Advance Directive? No Information n ot available 04/21/2021 What Is Your Level Of Alcohol Consumption? Occasional Information not available 07/28/2020 How Many Years Have You Consumed Alcohol? 16 Information not available 10/24/2021 Are You Blind Or Do You Have Difficulty Seeing? No Information n ot available 02/02/2021 What Is Your Level Of Caffeine Consumption? Occasional Information not available 07/28/2020 How Much Tobacco Do You Chew? None Information not available 04/21/2021 In The 14 Days Before Symptom Onset, Have You Had Close Contact With A Laboratory-confirm ed COVID-19 While That Case Was Ill? No Information n ot available 04/21/2021 In The 14 Days Before Symptom Onset, Have You Had Close Contact With A Person Who Is Under Investigation For COVID-19 While That Person Was Ill? No Information not available 04/21/2021 Have You Been To An Area Known To Be High Risk For COVID-19? No Information not available 10/24/2021 Are You Deaf Or Do You Have Serious Difficulty Hearing? No Information not available 02/02/2021 What Type Of Diet Are You Following? REGULAR Information n ot available 02/02/2021 What Is The Highest Grade Or Level Of School You Have Completed Or The Highest Degree You Have Received? 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 No Information not available 04/21/2021 Do You Use Protection During Sex? No Information not available 04/21/2021 Do You Use Your Seat Belt Or Car Seat Routinely? Yes Information not available 02/02/2021 Are You Sexually Active? Yes [email or web address] Information not available 03/16/2023 Do You Have Smoke And Carbon Monoxide Detectors In Your Home? Yes Information not available 02/02/2021 How Much Tobacco Do You Smoke? No Information not available 04/21/2021 Do You Feel Stressed (tense, Restless, Nervous, Or Anxious, Or Unable To Sleep At Night)? [id number] Information not available 02/02/2021 Do You Use Any Illicit Or Recreational Drugs? No Information not available 07/28/2020 Do You Use Sunscreen Routinely? Yes Information not available 02/02/2021 Have You Used IV Drugs? No Information not available 04/21/2021 Do You Or Have You Ever Used Any Other Forms Of Tobacco Or Nicotine? No Information not available 03/16/2023 Sex: Unknown Functional Status Question Answer Note LastModified by Organizat ion Details LastModified Time Do you have difficulty walking or climbing stairs? No [email or web address] Information not available 06/09/2024 Are you able to walk? YESWOREST Information not available 02/02/2021 Are you able to care for yourself? Yes Information not available 06/09/2024 Do you have difficulty dressing or bathing? No [email or web address] Information not available 06/09/2024 What is your exercise level? Moderate Information not available 07/28/2020 Mental Status None recorded. Family History Relationship Description Onset Age of this Age Resolved Age Notes LastModified by Organization Details LastModified Time Mother Family history of malignant neoplasm of cervix uteri [email or web address] Not available 09:18:00 Mother Carcinoma in situ of lung [email or web address] Not available 09:18:00 Sister Family history of malignant neoplasm of cervix uteri [email or web address] Not available 09:18:00 Sister Cyst of ovary [email or web address] Not available 2023 09:18:00 Paternal Grandmother Diabetes mellitus [email or web address] Not available 2019 09:29:03 Father Carcinoma in situ of prostate [email or web address] Not available 2023 09:18:00 Paternal Aunt Carcinoma in situ of stomach [email or web address] Not available 2023 09:18:00 Medical History Condition Response Allergies (Food, seasonal, environmental ) N Other N Breast Cancer N Drug/Latex Allergies/Reactions N Blood Transfusion N Lung Disease N Dermatologic Disorders N Defects or Inherited Disease N Breast Problem N Gestational Diabetes N Hematologic disorders N Anesthesia Complications N History of STI N Deep Vein Thrombosis N Polycystic ovary syndrome N Anxiety Disorder Y Autoimmune disease N Arthritis N Polyps N Infertility N History of abnormal pap Y Acid Reflux (GERD) N Cancer N Varicosities N Stroke N Neurologic/Epilepsy N Endometriosis N High Cholesterol N Fibromyalgia N Headaches N Kidney Disease N Heart Problems N Kidney or Bladder Problems N Thyroid Problems N GI Problems N Eating Disorder N Anemia N Art (IVF or FET) N Psychiatric Illness N Ovarian Cancer N Diabetes N Pulmonary (TB, Asthma) N Hepatitis/Liver Disease N Eczema N Urinary Tract Infection N Abuse/Domestic Violence N Asthma N Trauma/Violence N Depression/ depression Y Heart Disease N Pre-Eclampsia N Hypertension N Osteoporosis N Thrombophilias N Gynecological History Statement/Question Response Date of Last Mammogram 08/30/2021 Flow Heavy Date of LMP 02/22/2023 N Was last menstrual period normal Y STIs/STDs N Date of control 09/02/2021 Date of Last Colonoscopy BCPs Abnormal Pap N On BCP's at Conception? N HPV Vaccine Y Duration of Flow (days) 5 Current Control Method Hysterectom y 12 Age at First Child 14 Are cycles usually normal Y Frequency of Cycle (Q days) 25 Sexually Active? Y Menses Monthly Y Date of DEXA bone scan Age of first menstrual cycle 11 Date of Last Pap Smear 06/09/2024 Sexual Problems? N LMP Definite N Obstetrics History GPAL:G 1 P 1 0 0 1 Type Value Full Term 1 Living 1 Total 1 Past Encounters Encounter ID Performer Location Encounter Start Date Encounter Closed Date Diagnosis/Indication Diagnosis SNOMED-CT Code Diagnosis ICD10 Code Diagnosis Note [id number] Michelle Hurley , [facility] [address] [address] 12/02/2019 09:16:25 12/02/2019 10:45:34 Gynecologic examination 85513925 Z01.419 Take Calcium with Vitamin D 1200mg daily if not receiving in daily diet. It is strongly advised to have an annual flu shot and up can obtain at most pharmacies . If you have not had a TDap shot in the last 10 years you should obtain one as well. Discussed with patient & provided with informatio n regarding Gardisil vaccine to prevent the 4 strains for HPV that cause cervical cancer if under age 26. Encourage safe sexual practices, to use condoms and limit partners if not already in a monogamous relationsh ip. Do monthly self breast exams. Have mammogram yearly or every other year depending on family history. BRCA testing is now available for patients with strong genetic history of female cancer. If interested contact the office. Engage in daily exercise of low impact aerobic exercise 45-60 minutes 4-5 times weekly. Avoid tobacco and illicit drugs as well as using moderation with alcohol intake less than 1-2 8 oz beverages daily. This lifestyle behavior pattern will lead to less health conditions and longer life span. If BMI greater than 25 weight watchers or dietary consult advised. Patient received above instructio ns, and questions have been answered. If you have any questions please call or respond to this email. Patient was made aware of the patient portal and may obtain a paper copy of today's plan if desired. Pap/HPV sent Vaginitis/ STD screen sent [facility] done [facility] labs done Mass of left breast 1224 [id number] 1767058 N64.4 C/O left breast mass found on exam and consistent with patient concerns. Also having a pins & needles feeling in left breast for over a month now on/off. Imaging ordered Adult [facility] th examination [id number] Z00.00 Vaginitis 63168906 N76.0 Cultures sent Will await results to treat [id number] Alexia Alfredo MD [facility] [address],[place] [address] 07/28/2020 14:46:10 07/28/2020 15:30:33 Dysuria 20539218 R30.9 Venereal d isease screening 323960053 Z11.3 Postcoital bleeding 4888 0000 N93.0 Cyst of ovary 54515713 N 83.209 Vaginal odor 015716146 N 89.8 [id number] Alexia Alfredo MD [facility] [address],[place] [address] 08/11/2020 09:42:34 08/11/2020 12:46:17 Postcoital bleeding 49967252 N93.0 Cramping pain 049300743 R52 [id number] Deandra Paez [facility] [address],[place] [address] 08/11/2020 09:41:15 08/11/2020 15:15:24 Postcoital bleeding 74373149 N93.0 [id number] [facility] [address],[place] [address] 02/02/2021 09:20:11 02/02/2021 10:52:13 Gynecologic examination 46815551 Z01.419 Take Calcium with Vitamin D 1200mg daily if not receiving in daily diet. It is strongly advised to have an annual flu shot and up can obtain at most pharmacies . If you have not had a TDap shot in the last 10 years you should obtain one as well. Discussed with patient & provided with informatio n regarding Gardisil vaccine to prevent the 4 strains for HPV that cause cervical cancer if under age 26. Encourage safe sexual practices, to use condoms and limit partners if not already in a monogamous relationsh ip. Do monthly self breast exams. Have mammogram yearly or every other year depending on family history. BRCA testing is now available for patients with strong genetic history of female cancer. If interested contact the office. Engage in daily exercise of low impact aerobic exercise 45-60 minutes 4-5 times weekly. Avoid tobacco and illicit drugs as well as using moderation with alcohol intake less than 1-2 8 oz beverages daily. This lifestyle behavior pattern will lead to less health conditions and longer life span. If BMI greater than 25 weight watchers or dietary consult advised. Patient received above instructio ns, and questions have been answered. If you have any questions please call or respond to this email. Patient was made aware of the patient portal and may obtain a paper copy of today's plan if desired. Pap/HPV sent CBE done [facility] HSV-1 (cold sores mouth) Having breast informatio n from breast specialist [facility] sent here so we have it on record.The y did not recommend f/u or early screenings .She will have these records sent here; fax # [email or web address]. [id number] Deandra Paez [facility] [address] [address] 04/20/2021 13:55:03 04/20/2021 14:47:39 Abnormal uterine bleeding [id number] 9100 N93.9 [id number] Shlomo Dash MD [facility] [address] [address] 04/21/2021 11:39:27 04/21/2021 12:27:53 Abnormal uterine bleeding [id number] 9100 N93.9 This patient is a 35-year-ol d female presents for abnormal uterine bleeding. She also had an endometriu m that was thickened. There is some vascularit y to thickened endometriu m on ultrasound . We discussed an ovulatory bleeding. She had regular periods up until the beginning of this year. She then had irregular bleeding and no premenstru al symptoms over the last 9 months. We spent over 35 minutes face-to-fa ce. We discussed evaluation treatment of abnormal uterine bleeding. , anovulator y bleeding. We will start cyclic progestero ne for couple of months. She will return in 3 months. Screening procedure 2012 5006 Z13.9 [id number] Debbie Toure [facility] [address] [address] 07/22/2021 09:59:19 07/22/2021 10:58:37 Abnormal uterine bleeding [id number] 9100 N93.9 [id number] Shlomo Dash MD [facility] [address] [address] 07/26/2021 09:45:27 07/26/2021 15:16:58 Abnormal uterine bleeding 5995820932 9100 N93.9 Endometria l hyperplasia 168041673 N85.00 This patient is a 35-year-ol d female who presents for follow-up on abnormal uterine bleeding, endometria l hyperplasi a, endometria l thickening . She had an ultrasound . The ultrasound findings have improved. She has been taking cyclic progestero ne. Her bleeding is still irregular. They do not occur after the progestero ne. we reviewed her ultrasound results. We talked about treatment options. She is having some side effects from the micronized progestero ne. We talked about alternativ es to that. Talked about definitive surgical treatment. We talked about the progressio n from endometria l hyperplasi a to endometria l cancer. We agreed ultimately to continuous norethindr one, 5 mg, we spent over 25 minutes face-to-fa ce. We discussed detailed aspects of abnormal uterine bleeding, PCOS, weight gain weight loss, endometria l hyperplasi a and its consequenc es. We also agreed to sex hormone evaluation . She will return in Three months. [id number] Shlomo Dash MD [facility] [address] [address] 09/02/2021 09:33:44 09/02/2021 11:46:45 Obesity 369674909 E66.9 Polycystic ovary syndrome 381427617 E28.2 Prediabetes 293240047 R7 3.03 Abnormal u terine bleeding 1171380515 9100 N93.9 this patient is a 35-year-ol d fee who presents for follow-up on abnormal uterine bleeding and polycystic ovarian syndrome. She has elevated hemoglobin A1c and prediabete s. We spent over 25 minutes face-to-fa ce today. We talked about controllin g her bleeding. She has tried 2 different progestero sorin and had side effects from each. She start micronized progestero ne and now norethindr one. She has swelling associated with each. We agreed to try just peer known daily. She was given sample pill packs of slynd . Talked about her weight. She has a BMI of 36. We talked about weight loss and its affect on the prediabete s, abnormal uterine bleeding and PCOS. Talked about body compositio n testing a basal metabolic rate testing. Talked about weight loss medication s. [id number] Shlomo Dash MD [facility] [address],[place] [address] 09/13/2021 16:31:51 09/14/2021 16:24:36 Prediabetes 878381610 R73.03 Obesity 052019417 E66.9 This patient is a 35-year-ol d female with class 1/class 2 obesity and insulin resistance /prediabet es. we spent an hour together. More than 50% of that was counseling . We discussed various aspects of her history and counseled on behavior issues surroundin g obesity. We talked about exercise in detail talked about her mood. There may be concerns about her mood. We should follow-up on her mood at future visits. Her sleep seems reasonable . She does exercise and is involved in highly exertional resistance in cardiovasc ular training. Consistenc y may be a concern there. She has an elevated hemoglobin A1c and we have agreed to start metformin to prevent type 2 diabetes and may assist in weight control. We are going to obtain a fasting insulin / glucose and a salivary cortisol. We going to do a more in-depth profile of her thyroid hormones. She has already lost around 11 lb. She will require to EKG and we should do body compositio n at her next visit. We discussed the data associated with body compositio n testing and basal metabolic rate testing. She will return in 2 weeks and we will formed treatment plan. She will meet with the dietitian as well. [id number] Shlomo Dash MD [facility] [address],[facility] [place] [address] 09/27/2021 17:04:42 09/28/2021 15:32:28 Obesity 206907328 E66.9 This patient is a 35-year-ol d female presents for follow-up on weight management . We discussed her recent laboratory evaluation . She has a elevated hemoglobin A1c and elevated fasting glucose. She is a prediabeti c. We reviewed her thyroid profile and a testostero ne and hydroxy progestero ne. We talked about her exercise routine. She had a dietary consult in this happy with the meeting that she had with her dietitian. We talked about medical treatments in detail. Talked about type 2 diabetes medication s. We talked about phentermin e and topiramate combinatio n. We talked about medication cost and safety. . We agreed to begin a phentermin e and topiramate regimen. We reviewed her EKG. Her EKG was normal. We spent over 30 minutes face-to-fa ce discussing various complex topics. Talked about some behavioral issues surroundin g eating. Talked about sleep and fatigue. [id number] Shlomo Dash MD [facility] [address],[place] [address] 10/11/2021 16:13:52 10/11/2021 17:03:10 Obesity 323753602 E66.9 This patient is a 35-year-ol d female who presents for medication check. We began phentermin e topiramate combinatio n of the lowest dose is 10 days ago. Her weight had already begun to trend down. 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 this predates the started the medication .. She has been walking and jogging, started phentermin e the September. She is tolerating this dose well. She is noticed that she has greater will power Against unfavorabl e food choices. she has been seeing the dietitian and they have organized her energy consumptio n. We spent over 20 minutes face-to-fa ce. We agreed to stay at the current dose for 3 more weeks. We reviewed side effects. Reviewed precaution s. Patient is sleeping better after some weight loss. She will follow-up in 3 weeks. [id number] Shlomo Dash MD [facility] [address],[place] [address] 10/24/2021 09:37:57 10/24/2021 11:45:32 Endometrial hyperplasia 941770200 N85.00 this patient is a 36-year-ol d female with endometria l hyperplasi a he was treated for 6 months with progestero ne only contracept ion. Endometria l biopsy repeated today. To follow-up on those results. She tolerated the procedure well. [id number] Shlomo Dash MD [facility] [address],[place] [address] 10/29/2021 09:24:51 10/30/2021 17:22:33 Obesity 238008656 E66.9 PATIENT IS A 36-YEAR-OL D FEMALE WHO PRESENTS FOR follow-up on weight management and medical management . She is tolerating the phentermin e well. She has got reasonable results. She would like to improve her result in we agreed to increase the medication to 30/50 mg of phentermin e / topiramate . Her mood is improved. She has better energy. She has lost about 15 lb in 2 months. She begin an exercise routine that is more vigorous. She started doing cardio, elliptical , jogging. She started resistance training. She seen the dietitian 2 times. We spent over 40 minutes face-to-fa ce today. more than 50% was counseling . We talked about a range of complex topics that include diet, medication , exercise. We talked about her results and reviewed her body compositio n testing. We performed body compositio n testing today and we [id number] Shlomo Dash MD [facility] [address],[facility] [place] [address] 11/26/2021 09:56:07 11/26/2021 11:37:43 Obesity 429207788 E66.9 PATIENT IS A 36-YEAR-OL D FEMALE WHO PRESENTS FOR follow-up on weight management and medical management . She is tolerating the phentermin e well. She has got reasonable results. She Wanted to improve her results and we agreed to increase the medication to 30/50 mg of phentermin e / topiramate at her last visit.. Her mood is improved. She has better energy. She has lost about 23 lb in 3 months. She begin an exercise routine that is more vigorous. She started doing cardio, elliptical , jogging. She started resistance training. She seen the dietitian And is executed in their plan.. We spent over 40 minutes face-to-fa ce today. more than 50% was counseling . We talked about a range of complex topics that include diet, medication , exercise. We talked about her results and reviewed her body compositio n testing. We performed body compositio n testing today. Talked about anxiety. She is going through divorce. She is having trouble sleeping. She worries excessivel y at night before bed and weeks up in the middle the night worrying. We talked about her daily anxiety symptoms. She does well it while she is busy. We agreed that the sleep issue was the most important want of deal with initially. We agreed to a trial of trazodone. We discussed multiple complex issues Including weight management , anxiety, insomnia. Depression . Anxiety 88088471 F41.9 Insomnia 578337635 G47.0 0 [id number] Shlomo Dash MD [facility] [address],[facility] [place] [address] 12/24/2021 09:59:29 12/26/2021 14:47:54 Obesity 084155659 E66.9 This patient is a 36-year-ol d female presents for weight management follow-up. She continues to lose weight though maintain her current weight through this last interval. She had resistance training recently. She has been aggressive about resistance training using resistance bands. She is following up with the dietitian. She has a solid diet plan with the dietitian. She has some social issues that are making things difficult for but she is resilient and continues to move forward in her plans to get healthier. She is taking metformin to prevent pre diabetes. She is steadily losing weight on phentermin e and topiramate at 30/50 mg. She has lost 36 lb and has gone from a BMI of 37-32. This is been in less than 5 months. We spent considerab le time talking about her difficult Relationsh ip with her and his attempts to Disruptive her weight loss. we spent over 40 minutes face-to-fa ce. More than 50% was counseling . She return in 1 month. [id number] Shlomo Dash MD [facility] [address],[facility] [place] [address] 02/04/2022 10:02:48 02/06/2022 15:59:17 Obesity 423015593 E66.9 This patient is a 36-year-ol d female who presents for follow-up on weight management . Patient has recent bleed experience d increasing anxiety. We talked about medication changes. Patient has terrible anxiety. She was put on bupropion for anxiety. She is having panic attack. The phentermin e and bupropion together is probably about combinatio n. I told her as much. We feel that maybe the injectable Ozempic and she could discontinu e all her medication s. Bupropion, phentermin e, metformin and topiramate . We could then and a more effective medication for anxiety. She may not need any treatment for anxiety if she is off the phentermin e bupropion. We spent over 40 minutes face-to-fa ce. We made significan t changes to her medication s. We prescribed the Ozempic. Hopefully this will be covered. We talked about her anxiety in detail. We talked about treatment options. Talked about her diet. We talked about her activity level. We talked her personal life her relationsh ips. She does have a therapist. Prediabetes 281902205 R7 3.03 [id number] Shlomo Dash MD [facility] [address],[facility] [place] [address] 02/28/2022 13:53:52 02/28/2022 14:59:30 Prediabetes 193798629 R73.03 Obesity 124181538 E66.9 this patient is a 36-year-ol d female presents for follow-up for obesity. She has lost considerab le weight this point, however she recently gained some weight back. She discontinu ed phentermin e and started Victoza. She has been on 0.6 mg for 2 weeks. We going to increase at 1.2 and subsequent ly 1.8. Patient has had some serious anxiety issues in the past. We discontinu ed the bupropion. Her anxiety improved and then discontinu ing the phentermin e her anxiety improved to. She is mentally in a very good place right now. She is exercising regularly. She gained a little weight back but she is noticing some results with Victoza in terms of appetite. We spent more than 20 minutes face-to-fa ce. She return in 1 month. She has no untoward side effects of the Victoza. [id number] Shlomo Dash MD [facility] [address],[facility] [place] [address] 04/01/2022 12:31:58 04/03/2022 15:23:42 Generalized anxiety disorder 06252663 F41.1 Obesity 431928028 E66.9 This patient is a 36-year-ol d female presents for weight management . She has notice some slowing of her weight loss. She started Victoza recently. She was on 1.2 mg per day. She is going up to 1.8 mg starting this week. She is having trouble with anxiety. She is having some panic attacks. We talked about treatment. She would like to start treatment. We agreed to some Lexapro, 10 mg. She will follow up on that in 1 month. We spent more than 20 minutes face-to-fa ce. More than 50% was counseling . She is noticing some early satiety and fullness when eating. She is not creating any sweets. Increasing her activity level. [id number] Shlomo Dash MD [facility] [address],[place] [address] 05/23/2022 16:21:18 05/23/2022 18:09:40 Prediabetes 203528586 R73.03 this patient is a 36-year-ol d female presents for weight management follow-up. She is continuing to look better and feel better close. She is doing weight training is gained some weight but we feel it is lean body mass. I did tell her that this is something very positive for continued weight loss and weight regain. Exercise is excellent. Diet is excellent. We agreed to change from Victoza to the new G LP 1 agonist. We are going to start the 2nd lowest dose. She is not Naive to these G LP 1 agonist. we spent 20 minutes face-to-fa ce. More than 50% was counseling . She return in 1 month. [id number] Shlomo Dash MD [facility] [address],[place] [address] 06/20/2022 16:44:00 06/20/2022 17:42:39 Obesity 140353719 E66.9 This patient is a 36-year-ol d female who presents for weight management follow-up. She continues to maintain her weight. She is not losing at this time but she did lose since last visit. She has been staying around the 165 marked. She maintains an obese BMI. She had a of the skin sensitivit y or allergic reaction to the months or injection. We agreed to discontinu e that to avoid a more serious reaction. We decided to return to phentermin e topiramate . We will start at the lowest doses. She had good weight loss previously and now she has had a several month break after taking Victoza and Mon general. She is very active. She does lot of resistance training and she has modified her diet considerab ly. We spent over 20 minutes face-to-fa ce. She will return in 1 month. More than 50% was counseling today. [id number] Shlomo Dash MD [facility] [address],[facility] [place] [address] 08/19/2022 11:03:40 08/21/2022 11:04:03 Obesity 640657986 E66.9 This patient is a 36-year-ol d female who presents for weight management follow-up. she has had significan t weight regain. Off with the G LP 1 agonist she has regained 14 lb. She was taking 15 mg phentermin e. She has been getting poor sleep. I talked to her how sleep affects levels of hunger hormone/gr ehlin She is very active. She quickly gained back water weight after discontinu ing GLP 1 agonist. She is working a lot. We agreed to increase phentermin e to 30 to push back extreme hunger. She does lot of resistance training and she has modified her diet considerab ly. We spent over 20 minutes face-to-fa ce. She will return in 1 month. More than 50% was counseling today. [id number] [facility] [address] [address] 11/08/2022 12:11:19 11/08/2022 12:55:05 Abnormal uterine bleeding [id number] 9100 N93.9 This seems to be a long standing issue.She is more interested in surgical options than continuati on or initiation of hormonal methods which were discussed. We agreed to update US & schedule f/u/consul t with Dr. Dash to discuss options. Her flow is starting to lighten but would like a pill that might help until they have a plan. She prefers low dose. 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 Patient is to contact office or go to nearest ED/Urgent care if fever >/= 100.1, pain, excessive bleeding, unusual drainage or swelling in area of concern; or experienci ng worsening sx's or new onset of concerning sx's. Understand ing verbalized . All questions answered to patient satisfacti on. Generalize d anxiety disorder [id number] F41.1 Insulin resistance 52558 5000 E88.81 E66.9 Requested referral to endocrinol ogist [id number] Anali Campbell [facility] [address],[facility] [place] [address] 11/10/2022 14:59:19 11/10/2022 16:04:44 Abnormal uterine bleeding [id number] 9100 N93.9 this patient is a 35-year-ol d fee who presents for follow-up on abnormal uterine bleeding and polycystic ovarian syndrome. She has elevated hemoglobin A1c and prediabete s. We spent over 25 minutes face-to-fa ce today. We talked about controllin g her bleeding. She has tried 2 different progestero sorin and had side effects from each. She start micronized progestero ne and now norethindr one. She has swelling associated with each. We agreed to try just peer known daily. She was given sample pill packs of slynd . Talked about her weight. She has a BMI of 36. We talked about weight loss and its affect on the prediabete s, abnormal uterine bleeding and PCOS. Talked about body compositio n testing a basal metabolic rate testing. Talked about weight loss medication s. [id number] Shlomo Dash MD [facility] [address] [address] 11/17/2022 09:34:56 11/17/2022 11:31:00 Abnormal uterine bleeding [id number] 9100 N93.9 this patient is a 37-year-ol d female presents for multiple complex issues. She has abnormal uterine bleeding. For past 3 months she has had intermitte nt heavy bleeding that is unpredicta ble. This is been a recurrent problem for her. She has had multiple lengthy episodes of this nature. Multi month episodes of heavy irregular unpredicta ble bleeding. Talked about irregular bleeding. She has tried multiple treatment options including oral contracept sandra pills, progestero ne only, mechanical devices. IUD. Patient inquired about hysterecto my. We had also talked about endometria l ablation but talked about hysterecto my in detail. Patient would like to proceed with hysterecto my. We spent over 40 minutes face-to-fa ce. Made a decision to perform surgery. More than 50% of the visit was counseling . Talked about weight issues as well. Patient's likely has PCOS and her regular bleeding is associated with that. Talked about PCOS some we talked about abnormal uterine bleeding. Talked about anovulator y bleeding. Talked about her weight issues in her treatment. Patient discontinu ed her medication s for treatment of a obesity Obesity [id number] E66.9 [id number] Shlomo Dash MD [facility] [address] [address] 02/26/2023 11:42:46 02/26/2023 18:01:27 Abnormal uterine bleeding [id number] 9100 N93.9 this patient is a 37-year-ol d female with abnormal uterine bleeding. We agreed to perform total laparoscop ic hysterecto my and bilateral salpingect geoff. She understand s risks, benefits, and alternativ es. She has completed the informed consent process and is ready to proceed. [id number] Lian Chan [facility] [address] [address] 03/13/2023 10:08:10 03/13/2023 10:08:56 [id number] Shlomo Dash MD [facility] [address] [address] 03/16/2023 09:29:48 03/20/2023 14:26:42 Gynecologic examination [id number] Z01.419 female Patient presents for postop follow-up. She is 1 week postop from a total laparoscop ic hysterecto my bilateral salpingect geoff. She has no complaints . Her incisions are clean dry and intact. She is recovering normally. She will follow-up as needed. [id number] WAGNER Reddy [facility] [address] [address] 06/09/2024 09:17:02 06/09/2024 10:52:17 Gynecologic examination [id number] Z01.419 WWEBC - hystPap - not indicatedS TI screen - declinedRo utine labs - UTD/PCPRTC in 1 yr or sooner if needed It is strongly advised to have an annual flu shot and up can obtain at most pharmacies . If you have not had a TDap shot in the last 10 years you should obtain one as well. Discussed with patient & provided with informatio n regarding the HPV vaccine if applicable . Encourage safe sexual practices, to use condoms and limit partners if not already in a monogamous relationsh ip. Do monthly self breast exams. BRCA testing is now available for patients with strong genetic history of female cancer. If interested contact the office. Engage in regular exercise. Avoid tobacco and illicit drugs. This lifestyle behavior pattern will lead to less health conditions and longer life span. If BMI greater than 25 dietary consult advised. Questions answered. Screening for malignant neoplasm of breast [id number] Z12.39 Breast lump [id number] N63 .0 bilateral diagnostic mammogram with ultrasound ordered Vaginal odor [id number] N 89.8 vaginitis panel sentuses boric acid after IC Health Concerns Section Related Observation LastModified by Organization Detai ls LastModified Time None Recorded Concern Status LastModified by Organization Details LastModified Time None Recorded Advance Directives Directive N: Payers Encounter Date Sequence Insurance Name Policy Number Policy Jackson Covered Member ID Jackson Member ID Guarantor Name 11/17/2022 1 [employer] [id number] Lorraine L Schoeber [id number] Lorraine L Schoeber 02/26/2023 1 [employer] [id number] Lorraine L Schoeber [id number] Lorraine L Schoeber 03/09/2023 1 [place] [id number] Lorraine L Schoeber [id number] Lorraine L Schoeber 03/16/2023 1 [place]) [id number] Lorraine Morrison [id number] Lorraine Morrison 06/09/2024 1 [facility]: (PPO[place] [id number] Lorraine Morrison [id number] Lorraine Morrison Notes Date Note Type Note Provider Name and Address Organization Details Recorded Time 11/17/2022 text/html this patient is a 37-year-old female presents for multiple complex issues. She has abnormal uterine bleeding. For past 3 months she has had intermittent heavy bleeding that is unpredictable. This is been a recurrent problem for her. She has had multiple lengthy episodes of this nature. Multi month episodes of heavy irregular unpredictable bleeding. Talked about irregular bleeding. She has tried multiple treatment options including oral contraceptive pills, progesterone only, mechanical devices. IUD. Patient inquired about hysterectomy. We had also talked about endometrial ablation but talked about hysterectomy in detail. Patient would like to proceed with hysterectomy. We spent over 40 minutes mwso-py-kpso. Made a decision to perform surgery. More than 50% of the visit was counseling. Talked about weight issues as well. Patient's likely has PCOS and her regular bleeding is associated with that. Talked about PCOS some we talked about abnormal uterine bleeding. Talked about anovulatory bleeding. Talked about her weight issues in her treatment. Patient discontinued her medications for treatment of a obesity Shlomo Dash MD [address], [place], [address], [facility] 11/17/2022 10:25:42 02/26/2023 text/html this patient is a 37 y/o female who presents for preoperative care. She has menorrhagia and we have agreed to robotic hysterectomy with bilateral salpingectomy. She has abnormal uterine bleeding and menorrhagia. The patient understands the procedure. The procedure was described to the patient in great detail. the patient also understands the risks. The risks were also explained in detail. She understands that injuries May occur during surgery. She understands these injuries can result in hospitalization, more surgery, and severe illness. She understands there is risk of hemorrhage and infection. Shlomo Dash MD [address], [place], [address], [facility] 02/26/2023 17:54:50 03/16/2023 text/html female Patient presents for postop follow-up. She is 1 week postop from a total laparoscopic hysterectomy bilateral salpingectomy. She has no complaints. Her incisions are clean dry and intact. She is recovering normally. She will follow-up as needed. Shlomo Dash MD [address], [place], [address], [facility] 03/16/2023 17:13:53 06/09/2024 text/html Annual GYNReport ed bypatient.Menstrual cycle:Normal menses Urinary symptoms:No hematuria; No incontinence Vulva:No genital lesion Vagina:Foul-smellin g Breast:No breast pain; No breast lump; No nipple discharge Current Contraception:hyst Sexual complaints:No sexual complaints; No pain during intercourse; Normal libido Menopausal Symptoms:No menopausal symptoms; Normal vaginal lubrication Psychological symptoms:No depression; No anxiety; No PMDD Preventive measures:Encourage self breast examination; Encourage regular exercise; Encourage no tobacco use; Encourage regular mammograms starting age 40Notes:38yo wweh/o TLH, 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 06/09/2024 10:44:46 OBGyn Episode Ob Episode Information Episode Created Date Number of Fetuses Patient Bloodtype Patient rh Status Prepregnancy Weight lbs Domestic Partner Domestic Partner Phone Father Name Cane Piler Status 12/02/19 20 1 CLOSED Fetus Data First Name Last Name Admitted to NICU Weight (g) Sex Living Outcome Pediatric Complications Fetus ID Race Codes Race Delivery Type 3656.85 8704 M Full Term 1553 Primary Romeo Calculation Initial Romeo Date Initial Exam Date Initial Exam Provider Initial Ultrasound Date Last Menstrual Period Date Ultra Sound Weeks Gestation 0 Eighteen To Twenty Week Romeo Update Ultra Sound Date Fundal Height At Umbil Quickening Date Ultra Sound Latest Weeks Gestation Final Romeo Confirmed By Final Romeo Confirmed Date Final Romeo Date Ultra Sound Latest Days Gestation 0 0 Menstrual History Last Menstrual Date Menses Monthly On Bcp Conception Prior Menses Frequency Hcg Plus Date Menarche Onset Age Delivery Information Delivery Date Delivery Type Labor Anesthesia Weeks Gestation Incision Type Labor Labor Length Hrs Delivered By Post Complications Tubal Sterilization Discharge Date Comments 1 40 Discharge Information Feeding Method Contraceptive Method Maternal HG B and HCT Levels
--- OUTSIDE RECORDS SUMMARY | 2024-09-29 10:59 | XMS_ITS | Referral Summary ---
Author Organization [email or web address] Address [address] [place] [address] Care Team Providers Care Pin Sorter And Bagger Name Role Phone Unavailable Primary Care Provider Unavailabl e Source Comments [facility],non-owned Affiliates and Associated Physician Practices is amultiple site organization consisting of ambulatory clinics and hospital sitesin [place], [place], [place] and [place]. This disclosure is being madepursuant to the Care Everywhere program and may not contain all information available regarding this patient. Last updated 18.[email or web address] Allergies Active Allergy Reactions Criticality Noted Date Comments Codeine 06/13/2016 Sulfa Drugs 06/13/2016 Medications * Be aware that medications may not be up to date on this document. Alwaysverify current medications with the patient. Medication Sig Dispensed Refills Start Date End Date Status amphetamine-dextroam phetamine (ADDERALL) 10 MG tablet Take 10 mg by mouth every morning Active fluticasone propionate (FLONASE) 50 MCG/ACT nasal sprayIndications:Eus tachian tube dysfunction, bilateral [place] 2 Sprays into each nostril once daily 1 Bottle 06/13/2016 Active ondansetron (ZOFRAN) 4 MG tabletIndications:Eu stachian tube dysfunction, bilateral Take 1 Tab by mouth every 8 hours as needed for Nausea/Vomiting 15 Tab 06/13/2016 Active meclizine (ANTIVERT) 12.5 MG tabletIndications:Eu stachian tube dysfunction, bilateral Take 1 Tab by mouth 3 times daily as needed for Dizziness 15 Tab 06/13/2016 Active Social History Tobacco Use Types Packs/Day Years Used Date Smoking Tobacco: Never Sex and Gender Information Value Date Recorded Sex Assigned at Not on file Gender Identity Not on file Sexual Orientation Not on file Last Filed Vital Signs Vital Sign Reading Time Taken Comments Blood Pressure 124/78 06/13/2016 9:51 AM FACULTY PHYSICIAN Pulse 76 06/13/2016 9:51 AM FACULTY PHYSICIAN Temperature 36.8 C (98.3 F) 06/13/2016 9:51 AM FACULTY PHYSICIAN Respiratory Rate 18 06/13/2016 9:51 AM FACULTY PHYSICIAN Oxygen Saturation - - Inhaled Oxygen Concentration - - Weight 68 kg (150 lb) 06/13/2016 9:51 AM FACULTY PHYSICIAN Height 152.4 cm (5') 06/13/2016 9:51 AM FACULTY PHYSICIAN Body Mass Index 29.29 06/13/2016 9:51 AM FACULTY PHYSICIAN Plan of Treatment Not on file
--- OUTSIDE RECORDS SUMMARY | 2024-09-29 10:59 | XMS_ITS ---
Care Plan - [facility] Created on: September 29, 2024 MAREK DAVIS : 1985 Sex: Female Author Organization [facility] Address [address] [place] [address] Phone Care Team Providers Care Sheet Manager Name Role Phone Unavailable Unavailable Unavailable
--- OUTSIDE RECORDS SUMMARY | 2024-09-29 10:59 | XMS_ITS | Data Portability ---
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 She voiced understanding of plan and agrees [email or web address] Not available 03/30/2023 17:28:58 Plan of Treatment Reminders Order Date Submit Date Provider Last Modified By Organization Details Last Modified Time Details Appointments None recorded. Lab growth hormone, serum 2023 024 [facility], [address], [place], [address], 4 07:40:50 HbA1c (hemoglobin A1c), blood [address] (Lab), [address] [place], [address], 3 09:38:53 TSH + free T4, serum [address] (Lab), [address] [place], [address], 3 09:38:53 lipid panel, serum 2022 023 [facility] (Lab), [address] [place], [address], 3 12:46:17 vitamin D, 25-hydroxy, total, serum [address] (Lab), [address] [place], [address], 3 09:38:53 vitamin B12 + folate, serum or blood [address] (Lab), [address] [place], [address], 4 15:49:17 iron + TIBC + ferritin, serum [address] (Lab), [address] [place], [address], 3 09:38:53 CBC w/ auto diff 2022 023 [facility] (Lab), [address] [place], [address], 3 12:21:06 CMP, serum or plasma 2022 023 [facility] (Lab), [address] [place], [address], 3 12:46:15 TSH + free T4, serum 2022 023 [employer] [facility], [address] , [place], [address], 3 19:24:50 cortisol, am, serum 2022 023 [employer] [facility], [address], [place], [address], 3 15:43:10 dexamethaso ne, serum 2022 023 [facility] [employer] [facility], [address], [place], [address], 3 15:43:08 insulin, serum 2022 023 [facility], [address], [place], [address], 3 19:24:46 HbA1c (hemoglobin A1c), blood 2022 023 J[facility], [address], [place], [address], 3 19:24:51 progesteron e, serum 2022 023 J[facility], [address], [place], [address], 3 19:24:44 estradiol, serum 2022 023 [facility], [address], [place], [address], 3 19:24:49 dhea-sulfat e, serum 2022 023 [facility], [address], [place], [address], 3 19:24:45 testosteron e, free + total, serum 2022 023 J[facility], [address], [place], [address], 3 19:24:52 prolactin, serum 2022 023 J[facility], [address], [place], [address], 3 19:24:47 insulin, serum 2022 023 [facility], [address], [place], [address], 3 15:45:16 vitamin B12 + folate, serum or blood 2022 023 [facility], [address], [place], [address], 3 19:24:48 thyroid peroxidase (tpo) Ab, serum 2022 023 J[facility]AN [facility], [address], [place], [address], 3 19:24:45 T3, free, serum or plasma 2022 023 J[facility], [address], [place], [address], 19:24:48 iron + TIBC + ferritin, serum 2022 023 J[facility], [address], [place], [address], 19:24:41 iodine, serum 2022 023 J[facility], [address], [place], [address], 3 19:24:43 CMP, serum or plasma 2022 023 [facility], [address], [place], [address], 3 19:24:42 Referral None recorded. Procedures None recorded. Surgeries None recorded. Imaging None recorded. Medication Orders metformin ER 500 mg tablet,exte nded release 24 hr 2023 024 [id number], [address], [place], [place], [id number], 4 10:09:26 metformin ER 500 mg tablet,exte nded release 24 hr 2022 023 [facility], [address], [place], [place], [id number], 3 13:11:37 cyanocobala min (vit B-12) 1,000 mcg/mL injection solution 2022 023 JUAN A [facility] #68841, [address], [place], [place], [id number], 3 13:11:36 dexamethaso ne 1 mg tablet 2022 023 [facility] #28618, [address], [place], [place], [id number], 3 08:38:27 Patient TargetsNo targets recorded. Patient Instructions Encounter Date Encounter Id Patient Instructions Last Modified By Organization Details Last Modified Time 03/30/2023 [id number] INFLUENZA VACCIN E TD/TDAP Recommended today, patient declined Ordered Patient will get at local pharmacy/health department PNEUMONIA VACCINE Ordered Recommend ed today, patient declined Patient will get at local pharmacy/health department Recomm ended at age 64 SHINGLES Not indicated MAMMOGRAM: Last Mammogram __ Recommended today, but patient declined Ordered No screening indicated at this time/ no family history DEXA SCAN Recommended today, but patient declined Ordered No screening indicated CERVICAL SCREENING/PELVIC EXAMINATION Recommended today, but patient declined Ordered No screening necessary patient is up to date COLORECTAL SCREENING: Last Colonoscopy Recommended today, but patient declined Ordered Colonoscopy declined. Cologuard ordered No screening necessary until age 45 DEPRESSION SCREENING Continue current medication BMI Overweight Approp riate Underweight Obesity continue your current weight loss efforts NUTRITION Continue healthy eating & exercise PHYSICAL ACTIVITY Need more exercise/physical activity minimum of 10-20 minutes of activity that causes mild breathlessness/da y minimum of 20-30 minutes activity that causes mild breathlessness/da y minimum of 30-40 minutes of activity that causes mild breathlessness/da y VISION Ordered Recommend ed today ALCOHOL USE No alcohol use Occasional/So cial Use TOBACCO USE non smoker LUNG CANCER SCREENING Non Smoker-not indicated SEXUALLY ACTIVE Yes, Patient is in monogamous relationship HEPATITIS C SCREENING Ordered GLUCOSE SCREENING Ordered LIPID SCREENING Ordered Not available 03/30/2023 17:28:46 10/11/2023 [id number] Follow up in 3 months as needed Lab ordered Medication refill sent to pharmacy [email or web address] Not available 10/11/2023 10:09:17 Reason for Referral None Reported. Results Created Date Observation Date Name Description Value Unit Range Abnormal Flag Note LastModifiedBy Organization Detail LastModifiedTime 01/14/2001/18/2023 IRON, TIBC AND EDWIGE TIN PANEL iron, total 37 mcg/d L 40-190 low Not Available [employer] [address], [address], 01/18/2023 19:24:41 01/14/20 23 01/18/2023 IRON, TIBC AND EDWIGE TIN PANEL iron binding capacity 446 mcg/d L_(ca lc) 250-45 0 normal Not Available [address], [address], 01/18/2023 19:24:41 01/14/20 23 01/18/2023 IRON, TIBC AND EDWIGE TIN PANEL % saturation 8 %_(ca lc) 16-45 low Not Available [address], [address], 01/18/2023 19:24:41 01/14/20 23 01/18/2023 IRON, TIBC AND EDWIGE TIN PANEL ferritin 5 NG/mL 16-154 low Not Available [address], [address], 01/18/2023 19:24:41 01/14/2001/18/2023 COMPR EHENS APPLE METAB OLIC PANEL glucose 100 mg/dL 65-99 high Fasti ng refer ence inter mart For someo ne witho ut known diabe henry, a gluco se value betwe en 100 and 125 mg/dL is consi stent with predi abete s and shoul d be confi rmed with a follo w-up test. Not Available [address], [address], 01/18/2023 19:24:42 01/14/20 23 01/18/2023 COMPR EHENS APPLE METAB OLIC PANEL urea nitrogen (BUN) 13 mg/dL 7-25 normal Not Available [address], [address], 01/18/2023 19:24:42 01/14/20 23 01/18/2023 COMPR EHENS APPLE METAB OLIC PANEL creatinine 0.69 mg/dL 0.50-0 .97 normal Not Available [address], [address], 01/18/2023 19:24:42 01/14/20 23 01/18/2023 COMPR EHENS APPLE METAB OLIC PANEL eGFR 114 mL/mi n/1.7 3m2 > or = 60 normal The eGFR is based on the CKD-E PI 2020 equat ion. To calcu late the new eGFR from a previ ous Creat inine or Cysta tin C resul t, go to https ://pedro luis kirby.o juni/anton devi s/ kdoqi /gfr% 5Fcal culat or Not Available [address], [address], 01/18/2023 19:24:42 01/14/20 23 01/18/2023 COMPR EHENS APPLE METAB OLIC PANEL BUN/creatini ne ratio NOT APPLIC ABLE (calc ) 6-22 Not Available [address], [address], 01/18/2023 19:24:42 01/14/20 23 01/18/2023 COMPR EHENS APPLE METAB OLIC PANEL sodium 136 mmol/ L 135-14 6 normal Not Available [address], [address], 01/18/2023 19:24:42 01/14/20 23 01/18/2023 COMPR EHENS APPLE METAB OLIC PANEL potassium 4.0 mmol/ L 3.5-5. 3 normal Not Available [address], [address], 01/18/2023 19:24:42 01/14/20 23 01/18/2023 COMPR EHENS APPLE METAB OLIC PANEL chloride 104 mmol/ L 98-110 normal Not Available [address], [address], 01/18/2023 19:24:42 01/14/20 23 01/18/2023 COMPR EHENS APPLE METAB OLIC PANEL carbon dioxide 27 mmol/ L 20-32 normal Not Available [address], [address], 01/18/2023 19:24:42 01/14/20 23 01/18/2023 COMPR EHENS APPLE METAB OLIC PANEL calcium 9.3 mg/dL 8.6-10 .2 normal Not Available [address], [address], 01/18/2023 19:24:42 01/14/20 23 01/18/2023 COMPR EHENS APPLE METAB OLIC PANEL protein, total 6.4 g/dL 6.1-8. 1 normal Not Available [address], [address], 01/18/2023 19:24:42 01/14/20 23 01/18/2023 COMPR EHENS APPLE METAB OLIC PANEL albumin 4.2 g/dL 3.6-5. 1 normal Not Available [address], [address], 01/18/2023 19:24:42 01/14/20 23 01/18/2023 COMPR EHENS APPLE METAB OLIC PANEL globulin 2.2 g/dL_ (calc ) 1.9-3. 7 normal Not Available [address], [address], 01/18/2023 19:24:42 01/14/20 23 01/18/2023 COMPR EHENS APPLE METAB OLIC PANEL albumin/glob ulin ratio 1.9 (calc ) 1.0-2. 5 normal Not Available [address], [address], 01/18/2023 19:24:42 01/14/20 23 01/18/2023 COMPR EHENS APPLE METAB OLIC PANEL bilirubin, total 0.4 mg/dL 0.2-1. 2 normal Not Available [address], [address], 01/18/2023 19:24:42 01/14/20 23 01/18/2023 COMPR EHENS APPLE METAB OLIC PANEL alkaline phosphatase 67 U/L 31-125 normal Not Available [address], [address], 01/18/2023 19:24:42 01/14/20 23 01/18/2023 COMPR EHENS APPLE METAB OLIC PANEL AST 14 U/L 10-30 normal Not Available [address], [address], 01/18/2023 19:24:42 01/14/20 23 01/18/2023 COMPR EHENS APPLE METAB OLIC PANEL ALT 18 U/L 6-29 normal Not Available [address], [address], 01/18/2023 19:24:42 01/14/20 23 01/18/2023 IODIN E, SERUM /PLAS MA iodine, serum/plasma 65 mcg/L 52-109 This test was devel opcandie and its sonya tical perfo rmanc e suha cteri stics have been deter mined by [facility] anibal [place]illas nandiniALEXANDRO deleon. It has not been clear ed or appro lianna by the U.S. Food and Drug Admin istra tion. This assay has been valid ated pursu ant to the CLIA regul ation s and is used for clini bony purpo ses. Not Available [facility] [address] [address] [place], [address], 01/18/2023 19:24:43 01/14/20 23 01/18/2023 PROGE STERO NE, LC/MS progesterone , lc/MS <0.1 NG/mL Adult Femal e Refer ence Range s for Proge stero ne: Pre-M enopa usal Mid Folli cular : < or = 0.3 ng/mL Pre-M enopa usal Surge : 0.1-1 .5 ng/mL Pre-M enopa usal Mid Lutea l: 6.7-2 2.2 ng/mL Postm enopa usal Phase : < or = 0.2 ng/mL This test was devel oped and its sonya tical perfo rmanc e suha cteri stics have been deter mined by [facility] Delvallei anibal Butler . It has not been clear ed or appro lianna by FDA. This assay has been valid ated pursu ant to the CLIA regul ation s and is used for clini bony purpo ses. Not Available [facility] [address] [place], [address], 01/18/2023 19:24:44 01/14/2001/18/2023 THYRO ID PEROX IDASE ANTIB ODIES thyroid peroxidase antibodies 1 IU/mL <9 Not Available [facility] [address] [address] [place], [address], 01/18/2023 19:24:45 01/14/20 23 01/18/2023 DHEA SULFA TE DHEA sulfate 60 mcg/d L 19-237 normal Not Available [facility] [address] [address] [place], [address], 01/18/2023 19:24:45 01/14/20 23 01/18/2023 INSUL IN insulin 10.8 uIU/m L normal Refer ence Range < or = 18.4 Risk: Optim al < or = 18.4 Moder ate NA High >18.4 Adult cardi ovasc ular event risk categ ory cut point s (opti mal, moder ate, high) are based on Insul in Refer ence Inter mart studi es perfo rmed at [facility] in 2021. Not Available [facility] [address] [address] [place], [address], 01/18/2023 19:24:46 01/14/2001/18/2023 PROLA CTIN prolactin 23.3 NG/mL normal Refer ence Range Femal es Non-p regna nt 3.0-3 0.0 Pregn ant 10.0- 209.0 Postm enopa usal 2.0-2 0.0 Not Available [facility] [address] [address] [place], [address], 01/18/2023 19:24:47 01/14/2001/18/2023 VITAM IN B12/F OLATE , SERUM PANEL vitamin B12 353 pg/mL 200-11 00 normal Pleas e Note: Altho ugh the refer ence range for vitam in B12 is 200-1 100 pg/mL , it has been repor oleg that betwe en 5 and 10% of patie nts with value s betwe en 200 and 400 pg/mL may exper ience neuro psych iatri c and hemat ologi c abnor malit ies due to occul t B12 defic iency ; less than 1% of patie nts with value s above 400 pg/mL will have sympt oms. Not Available [facility] [address] [address] [place], [address], 01/18/2023 19:24:48 01/14/2001/18/2023 VITAM IN B12/F OLATE , SERUM PANEL folate, serum 16.5 NG/mL normal Refer ence Range Low: <3.4 Borde rline : 3.4-5 .4 Vielka l: >5.4 Not Available [facility] [address] [address] [place], [address], 01/18/2023 19:24:48 01/14/20 23 01/18/2023 T3, FREE T3, free 3.4 pg/mL 2.3-4. 2 normal Not Available [facility] [address] [place], [address], 01/18/2023 19:24:48 01/14/20 23 01/18/2023 ESTRA DIOL estradiol 70 pg/mL normal Refer ence Range Folli cular Phase : 19-14 4 Mid-C ycle: 64-35 7 Lutea l Phase : 56-21 4 Postm enopa usal: < or = 31 Refer ence range estab lishe d on post- puber eileen patie nt popul ation . No pre-p ubert al refer ence range estab lishe d using this assay . For any patie nts for whom low Estra diol level s are antic ipate d (e.g. males , pre-p ubert al child hilario and hypog onada l/pos t-men opaus al femal es), the [facility] Estra diol, Ultra sensi tive, LCMSM S assay is recom maliha d (orde r code 77949 ). Plekarely e note: patie nts being treat ed with the drug fulve stran t (Fasl odex( R)) have demon strat ed signi fican t inter feren ce in immun oassa y metho ds for estra diol measu remen t. The cross react ivity could lead to false ly eleva oleg estra diol test resul ts leadi ng to an inapp ropri ate clini bony asses sment of estro gen statu s. [facility] order code [id number] -Estr adiol , Ultra sensi tive LC/MS /MS demon strat es negli gible cross react ivity with fulve stran t. Not Available [facility] [address] [place], [address], 01/18/2023 19:24:49 01/14/2001/18/2023 TSH+F REE T4 TSH 1.69 mIU/L normal Refer ence Range > or = 20 Years 0.40- 4.50 Pregn enrique Range s First trime ster 0.26- 2.66 Secon d trime ster 0.55- 2.73 Third trime ster 0.43- 2.91 Not Available [facility] [address] [place], [address], 01/18/2023 19:24:50 01/14/2001/18/2023 TSH+F REE T4 T4, free 1.0 NG/dL 0.8-1. 8 normal Not Available [facility] [address] [address], [place], [address], 01/18/2023 19:24:50 01/14/2001/18/2023 HEMOG LOBIN A1C hemoglobin A1C 5.3 %_of_ total _HGB <5.7 normal For the purpo se of screflorence corral for the prese nce of diabe henry: <5.7% Consi stent with the absen ce of diabe henry 5.7-6 .4% Consi stent with incre ased risk for diabe henry (pred iabet es) > or =6.5% Consi stent with diabe henry This assay resul t is consi stent with a decre ased risk of diabe henry. Curre ntly, no conse nsus exist kathleen rod use of hemog lobin A1c for diagn osis of diabe henry in child hilario. Accor ding to Ameri can Diabe henry Assoc iatio n (ADA) guide lines , hemog lobin A1c <7.0% repre sents optim al contr ol in non-p regna nt diabe tic patie nts. Diffe rent metri cs may apply to speci fic patie nt popul ation s. Stand ards of Medic al Care in Diabe henry(A DA). Not Available [facility] [address] [place], [address], 01/18/2023 19:24:51 01/14/2001/18/2023 TESTO STERO NE, FREE (DIAL YSIS) AND TOTAL ,MS testosterone , total, MS 25 NG/dL 2-45 For addit ional infor kiera mccauley e refer to https ://ed ucati on.qu tierney rowanApperian. com/f aq/FA Q165 (This link is being provi ded for infor matio nal/e ducat ional purpo ses only. ) (Note ) This test was devel oped and its sonya tical perfo rmanc e suha cteri stics have been deter mined by [employer]. It has not been clear ed or appro lianna by the FDA. This assay has been valid ated pursu ant to the CLIA regul ation s and is used for clini bony purpo ses. Not Available [facility] [address] [place], [address], 01/18/2023 19:24:51 01/14/2001/18/2023 TESTO STERO NE, FREE (DIAL YSIS) AND TOTAL ,MS testosterone , free 3.8 pg/mL 0.1-6. 4 (Note ) This test was devel oped and its sonya tical perfo rmanc e suha cteri stics have been deter mined by [employer]. It has not been clear ed or appro lianna by the FDA. This assay has been valid ated pursu ant to the CLIA regul ation s and is used for clini bony purpo ses. [facility] med fusio n [address] [facility] [address] [facility] [address] [phone] Gerardo anderson MD Not Available [facility] [address] [address], [place], [address], 01/18/2023 19:24:51 01/21/2001/24/2023 DEXAM ETHAS ONE dexamethason e 477 NG/dL Refer ence Range s for Dexam ethas one: Basel ine: Less than 20 ng/dL 1 mg dexam ethas one overn ight: 180-5 50 ng/dL (8:00 -10:0 0 AM) This test was devel oped and its sonya tical perfo rmanc e suha cteri stics have been deter mined by [facility] . It has not been clear ed or appro lianna by FDA. This assay has been valid ated pursu ant to the CLIA regul ation s and is used for clini bony purpo ses. Not Available [facility] [address] [place], [address], 01/24/2023 15:43:08 01/21/20 23 01/24/2023 CORTI ROD, A.M. cortisol, A.M. 0.9 mcg/d L low Refer ence Range 8 a.m. (7-9 a.m.) Speci men: 4.0-2 2.0 Not Available [facility] [address] , [place], [address], 01/24/2023 15:43:10 06/02/20 23 06/02/2023 CBC/C OMPLE TE BLD COUNT W/DIF F white blood cells 6.4 x10'3 /uL 4.2-10 .8 Not Available [facility] (Lab) [address] [place], [address], 06/02/2023 12:21:06 06/02/20 23 06/02/2023 CBC/C OMPLE TE BLD COUNT W/DIF F red blood cells 4.75 x10'6 /uL 3.80-5 .20 Not Available [facility] (Lab) [address] [place], [address], 06/02/2023 12:21:06 06/02/20 23 06/02/2023 CBC/C OMPLE TE BLD COUNT W/DIF F hemoglobin 14.4 g/dL 12.0-1 5.6 Not Available [facility] (Lab) [address] [place], [address], 06/02/2023 12:21:06 06/02/20 23 06/02/2023 CBC/C OMPLE TE BLD COUNT W/DIF F hematocrit 41.9 % 35.7-4 5.7 Not Available [facility] (Lab) [address] [place], [address], 06/02/2023 12:21:06 06/02/20 23 06/02/2023 CBC/C OMPLE TE BLD COUNT W/DIF F mean red cell volume 88.2 fL 82.0-[address] [facility] (Lab) [address] [place], [address], 06/02/2023 12:21:06 06/02/2006/02/2023 CBC/C OMPLE TE BLD COUNT W/DIF F mean red cell hemoglobin 30.3 pg 27.0-3 3.0 Not Available [facility] (Lab) [address] [place], [address], 06/02/2023 12:21:06 06/02/2006/02/2023 CBC/C OMPLE TE BLD COUNT W/DIF F mean RBC HGB concentratio n 34.4 g/dL 31.0-3 6.0 Not Available [facility] (Lab) [address] [place], [address], 06/02/2023 12:21:06 06/02/20 23 06/02/2023 CBC/C OMPLE TE BLD COUNT W/DIF F red cell distribution width 12.3 % 11.8-1 5.5 Not Available [facility] (Lab) [address] [place], [address], 06/02/2023 12:21:06 06/02/2006/02/2023 CBC/C OMPLE TE BLD COUNT W/DIF F platelets 262 x10'3 /uL 150-40 0 Not Available [facility] (Lab) [address] [place], [address], 06/02/2023 12:21:06 06/02/20 23 06/02/2023 CBC/C OMPLE TE BLD COUNT W/DIF F mean platelet volume 9.0 fL 9.0-[address] [facility] (Lab) [address] [place], [address], 06/02/2023 12:21:06 06/02/20 23 06/02/2023 CBC/C OMPLE TE BLD COUNT W/DIF F neutrophils 60.3 % 39.0-[address] [facility] (Lab) [address] [place], [address], 06/02/2023 12:21:06 06/02/2006/02/2023 CBC/C OMPLE TE BLD COUNT W/DIF F lymphocytes 29.0 % 16.0-[address] [facility] (Lab) [address] [place], [address], 06/02/2023 12:21:06 06/02/2006/02/2023 CBC/C OMPLE TE BLD COUNT W/DIF F monocytes 5.2 % 5.0-[address] [facility] (Lab) [address] [place], [address], 06/02/2023 12:21:06 06/02/2006/02/2023 CBC/C OMPLE TE BLD COUNT W/DIF F eosinophils 4.4 % 1.0-7. [address] [facility] (Lab) [address] [place], [address], 06/02/2023 12:21:06 06/02/2006/02/2023 CBC/C OMPLE TE BLD COUNT W/DIF F basophils 0.8 % 0.0-2. 0 Not Available [facility] (Lab) [address] [place], [address], 06/02/2023 12:21:06 06/02/2007 0606/02/2023 CBC/C OMPLE TE BLD COUNT W/DIF F immature granulocytes 0.3 % 0.00-0 .50 Not Available [facility] (Lab) [address] [place], [address], 06/02/2023 12:21:06 06/02/20 23 06/02/2023 CBC/C OMPLE TE BLD COUNT W/DIF F neutrophils, absolute count 3.83 x10'3 /uL 1.5-8. 0 Not Available [facility] (Lab) [address] [place], [address], 06/02/2023 12:21:06 06/02/20 23 06/02/2023 CBC/C OMPLE TE BLD COUNT W/DIF F lymphocytes, absolute count 1.84 x10'3 /uL 1.07-3 .43 Not Available [facility] (Lab) [address] [place], [address], 06/02/2023 12:21:06 06/02/20 23 06/02/2023 CBC/C OMPLE TE BLD COUNT W/DIF F monocytes, absolute count 0.33 x10'3 /uL 0.29-0 .99 Not Available [facility] (Lab) [address] [place], [address], 06/02/2023 12:21:06 06/02/2006/02/2023 CBC/C OMPLE TE BLD COUNT W/DIF F eosinophils, absolute count 0.28 x10'3 /uL 0.02-0 .53 Not Available [facility] (Lab) [address] [place], [address], 06/02/2023 12:21:06 06/02/20 23 06/02/2023 CBC/C OMPLE TE BLD COUNT W/DIF F basophils, absolute count 0.05 x10'3 /uL 0.01-0 .08 Not Available [facility] (Lab) [address] [place], [address], 06/02/2023 12:21:06 06/02/20 23 06/02/2023 CBC/C OMPLE TE BLD COUNT W/DIF F immature granulocytes ,absolute 0.02 x10'3 /uL 0.00-0 .05 Not Available [facility] (Lab) [address] [place], [address], 06/02/2023 12:21:06 06/02/20 23 06/02/2023 CBC/C OMPLE TE BLD COUNT W/DIF F nucleated red blood cells 0.0 % -0 Not Available [facility] (Lab) [address] [place], [address], 06/02/2023 12:21:06 06/02/20 23 06/02/2023 CBC/C OMPLE TE BLD COUNT W/DIF F NRBC# 0.00 x10'3 /uL Not Available [facility] (Lab) [address] [place], [address], 06/02/2023 12:21:06 06/02/20 23 06/02/2023 IRON/ TIBC PANEL total iron binding capacity 364 mcg/d L 265-47 5 Not Available [facility] (Lab) [address] [place], [address], 06/02/2023 12:53:13 06/02/20 23 06/02/2023 IRON/ TIBC PANEL % transferrin saturation 33 % 20-55 Not Available [facility] [facility] (Lab[facility] [address] [place], [address], 06/02/2023 12:53:13 06/02/20 23 06/02/2023 IRON/ TIBC PANEL unsaturated iron bind capacity 244 mcg/d L 126-38 2 Not Available [facility] (Lab) [address] [place], [address], 06/02/2023 12:53:13 06/02/20 23 06/02/2023 IRON/ TIBC PANEL iron 120 mcg/d L 42-[address] [facility] (Lab) [address] [place], [address], 06/02/2023 12:53:13 06/02/20 23 06/02/2023 COMPR EHENS APPLE METAB OLIC PANEL sodium 137 mmol/ L 137-[address] [facility] (Lab) [address] [place], [address], 06/02/2023 12:46:15 06/02/2006/02/2023 COMPR EHENS APPLE METAB OLIC PANEL potassium 4.2 mmol/ L 3.5-5. 1 Not Available [facility] (Lab) [address] [place], [address], 06/02/2023 12:46:15 06/02/20 23 06/02/2023 COMPR EHENS APPLE METAB OLIC PANEL chloride 103 mmol/ L 98-107 Not Available [facility] (Lab) [address] [place], [address], 06/02/2023 12:46:15 06/02/20 23 06/02/2023 COMPR EHENS APPLE METAB OLIC PANEL carbon dioxide 29 mmol/ L 22-[address] [facility] (Lab) [address] [place], [address], 06/02/2023 12:46:15 06/02/20 23 06/02/2023 COMPR EHENS APPLE METAB OLIC PANEL anion gap 9.2 mmol/ L 14-22 low Not Available [facility] (Lab) [address] [place], [address], 06/02/2023 12:46:15 06/02/20 23 06/02/2023 COMPR EHENS APPLE METAB OLIC PANEL glucose 108 mg/dL 70-99 high Not Available [facility] (Lab) [address] [place], [address], 06/02/2023 12:46:15 06/02/20 23 06/02/2023 COMPR EHENS APPLE METAB OLIC PANEL BUN 13 mg/dL 8-19 Not Available [facility] (Lab) [address] [place], [address], 06/02/2023 12:46:15 06/02/20 23 06/02/2023 COMPR EHENS APPLE METAB OLIC PANEL creatinine 0.74 mg/dL 0.66-1 .25 Not Available [facility] (Lab) [address] [place], [address], 06/02/2023 12:46:15 06/02/20 23 06/02/2023 COMPR EHENS APPLE METAB OLIC PANEL GFR >60 Refer ence Range : [place] ge GFR Healt hy Adult : >60 mL/mi n/1.7 3 m2 Chron ic Kidne y Disea se: 15-60 mL/mi n/1.7 3 m2 Kidne y Failu re: <15/m L/min /1.73 m2 www.n iddk. nih.g ov The MDRD study equat ion has not been valid ated in child hilario <18 years of age; pregn ant women ; the elder ly >85 years of age; or in some racia l or ethni c subgr oups, such as Hishi nics. Outsi de the valid ated lidia eters , estim ated GFR is less accur ate, requi ring clini bony judgm ent on a case- by-ca se basis . Clini bony inter preta tion for other races and ages must be made by the clini franco. The MDRD study equat ion has not been valid ated for the evalu ation of serum creat inine relat ed to nutri valerie l statu s or medic ation usage . For perso ns <18 years of age, a pedia tric GFR calcu lator is avail able on the [facility] websi te: https :[email or web address] luis fairchild.gama kirby.o juni/pr ofess ional s/kdo qi/gf r_cal culat or Not Available [facility] (Lab) [address] [facility] [place], [address], 06/02/2023 12:46:15 06/02/20 23 06/02/2023 COMPR EHENS APPLE METAB OLIC PANEL alkaline phosphatase 72 U/L 38-126 Not Available [facility] (Lab) [address] [place], [address], 06/02/2023 12:46:15 06/02/20 23 06/02/2023 COMPR EHENS APPLE METAB OLIC PANEL alanine aminotransfe rase 30 U/L 0-35 Not Available [facility] (Lab) [address] [place], [address], 06/02/2023 12:46:15 06/02/20 23 06/02/2023 COMPR EHENS APPLE METAB OLIC PANEL aspartate aminotransfe rase 21 U/L 15-37 Not Available [facility] (Lab) [address] [place], [address], 06/02/2023 12:46:15 06/02/20 23 06/02/2023 COMPR EHENS APPLE METAB OLIC PANEL bilirubin, total 0.60 mg/dL 0.20-1 .30 Not Available [facility] (Lab) [address] [place], [address], 06/02/2023 12:46:15 06/02/20 23 06/02/2023 COMPR EHENS APPLE METAB OLIC PANEL calcium 9.3 mg/dL 8.4-10 .2 Not Available [facility] (Lab) [address] [place], [address], 06/02/2023 12:46:15 06/02/20 23 06/02/2023 COMPR EHENS APPLE METAB OLIC PANEL total protein 7.1 g/dL 6.3-8. 2 Not Available [facility] (Lab) [address] [place], [address], 06/02/2023 12:46:15 06/02/20 23 06/02/2023 COMPR EHENS APPLE METAB OLIC PANEL albumin 4.1 g/dL 3.4-5. 0 Not Available [facility] (Lab) [address] [place], [address], 06/02/2023 12:46:15 06/02/20 23 06/02/2023 COMPR EHENS APPLE METAB OLIC PANEL globulin 3.0 g/dL 2.6-4. 2 Not Available [facility] (Lab) [address] [place], [address], 06/02/2023 12:46:15 06/02/20 23 06/02/2023 COMPR EHENS APPLE METAB OLIC PANEL A/G ratio 1.4 ratio 1.0-2. 0 Not Available [facility] (Lab) [address] [place], [address], 06/02/2023 12:46:15 06/02/2006/02/2023 LIPID PANEL cholesterol 216 mg/dL 140-19 9 high NIH CLYDE NSUS RECOM MENDA TION FOR LARRY STERO L: ADULT CHILD LOW RISK: <200 <170 BORDE RLINE : <200- 239 ----- HIGH RISK: >240 >200 Not Available [facility] (Lab) [address] [place], [address], 06/02/2023 12:46:17 06/02/2006/02/2023 LIPID PANEL triglyceride s 206 mg/dL 0-150 high NIH CLYDE NSUS REPOR T RECOM MENDA TION FOR TRIGL YCERI WILMER: ADULT CHILD LOW RISK: <150 ----- BODER LINE: 150-1 99 ----- HIGH RISK: >200 ----- Not Available [facility] (Lab) [address] [place], [address], 06/02/2023 12:46:17 06/02/20 23 06/02/2023 LIPID PANEL HDL cholesterol 57 mg/dL 40- Not Available [facility] (Lab) [address] [place], [address], 06/02/2023 12:46:17 06/02/20 23 06/02/2023 LIPID PANEL LDL cholesterol, calculated 118 mg/dL 0-130 NIH CLYDE NSUS REPOR T RECOM MENDA TIONS FOR LDL: ADULT CHILD LOW RISK <130 <110 (OPTI MAL LDL) <100 ----- BORDE RLINE : 130-1 59 ----- HIGH RISK: >160 >130 A TRIGL YCERI DE RESUL T >400 INVAL IDATE S THE CALCU LATIO N FOR LDL FRACT IONAT ION - THE LDL RESUL T WILL NOT BE REPOR OLEG. Not Available [facility] (Lab) [address] [place], [address], 06/02/2023 12:46:17 06/02/20 23 06/02/2023 T4 FREE free T4 0.82 NG/dL 0.78-2 .19 Not Available [facility] (Lab) [address] [place], [address], 06/02/2023 13:01:14 06/02/20 23 06/02/2023 TSH thyroid-stim ulating hormone 0.838 uIU/m L 0.465- 4.680 Not Available [facility] (Lab) [address] [place], [address], 06/02/2023 13:15:44 06/02/20 23 06/02/2023 EWDIGE TIN ferritin 17 NG/mL 6.24-1 37 Not Available [facility] (Lab) [address] [place], [address], 06/02/2023 13:17:45 06/02/20 23 06/02/2023 VITAM IN B12 (OLIVIER BIBI ) vb12 701 pg/mL 239-93 1 Not Available [facility] (Lab) [address] [place], [address], 06/02/2023 18:22:07 06/02/2006/02/2023 FOLAT E, SERUM /PLAS MA folate 16.4 NG/mL 2.76-2 0.0 Not Available [facility] (Lab) [address] [place], [address], 06/02/2023 18:22:11 06/02/2006/02/2023 HEMOG LOBIN A1C HA1C 5.7 % 4.0-6. 0 Diabe henry Scree shayna Crite geovanna: <5.7% Consi stent with absen ce of diabe henry 5.7-6 .4% Consi stent with incre ased risk for diabe henry (pred iabet es) >OR=6 .5% Consi stent with diabe henry REFER ENCE: Diabe henry Care 2016, 39(Mendez ppl.1 ):s13 -s22 Not Available [facility] (Lab) [address] [place], [address], 06/02/2023 19:59:27 06/02/2006/02/2023 VITAM IN D 25-HY DROXY vd25oh 45.4 NG/mL 30-100 Vitam in D Statu s: Defic ient: <20 ng/mL Insuf ficie nt: 20-29 ng/mL Suffi cient : 30-10 0 ng/mL Not Available [facility] (Lab) [address] [place], [address], 06/02/2023 20:06:08 Result Notes None recorded. Problems Name Problem SNOMED Code Status Onset Date Resolution Date Notes Provider Name and Address Organization Details Recorded Time Irritable bowel syndrome 89936607 Active Gracie Mora APRN [address], [place], [address] , [facility] [employer] 4 09:52:01 Anxiety disorder 950606055 Active 2017 Gracie Mora APRN [address], [place], [address] , [employer] [facility] [employer] 4 09:51:06 Anxiety state 973942598 Active Gracie Mora APRN [address], [place], [address] , [employer] [facility] 4 09:56:52 Gastroesophag eal reflux disease 156154149 Active 2016 Gracie Mora APRN [address], [place], [address] , [facility] [employer] 4 09:51:42 Hypoglycemia 498863297 Active Gracie Mora APRN [address], [place], [address] , [employer] 4 09:51:48 Tear of medial meniscus of knee 595752645 Active 2016 Not Available [employer] 3 05:06:03 Knee pain Active Not Available [facility] [facility] 3 05:06:03 Attention deficit hyperactivity disorder, predominantly inattentive type 98305472 Active Gracie Mora APRN [address], [place], [address] , [employer] 4 09:51:15 Depressive disorder 36306912 Active 2018 Gracie Mora APRN [address], [place], [address] , [employer] 4 09:51:36 Sinusitis 81300384 Active Not Available [employer] 3 05:06:03 Pityriasis versicolor 10322960 Active Gracie Mora APRN [address], [place], [address] , [employer] [facility] [employer] 4 09:52:15 Breath smells unpleasant 10301952 Active Not Available [employer] 3 05:06:03 Breast lump 33746480 Active Gracie Mora APRN [address], [place], [address] , [facility] [employer] 4 09:56:52 Pain in limb 83391320 Active Not Available [facility] 3 05:06:03 Skin lesion 26147887 Active Not Available [facility] 3 05:06:03 Conjunctiviti s 0019332 Active Not Available [facility] 3 05:06:03 Weight gain 4357811 Active 2022 Lucy Abdi MD [address], [place], [address] , [employer] [facility] [employer] 3 15:40:55 Irregular periods 62119519 Active 2022 Lucy Abdi MD [address], [place], [address] , [employer] [facility] [employer] 3 15:41:21 Fatigue 04253297 Active 2022 Gracie Mora APRN [address], [place], [address] , [employer] [facility] [employer] 4 09:51:30 Hyperglycemia 14357121 Active 2022 Gracie Mora APRN [address], [place], [address] , [employer] [facility] [employer] 4 09:51:54 Iron deficiency anemia 99143224 Active 2022 Gracie Mora APRN [address], [place], [address] , [employer] [facility] [employer] 4 09:51:58 Kai thyroiditis 89141559 Active 2022 Gracie Mora APRN [address], [place], [address] , [employer] [facility] [employer] 4 09:51:45 Impaired fasting glycemia 146805447 Active 2022 Lucy Abdi MD [address], [place], [address] , [facility] [facility] 3 13:08:19 Vitamin B12 deficiency (non anemic) 22763796 Active 2022 Gracie Mora APRN [address], [place], [address] , [facility] 4 09:52:22 Cobalamin deficiency 268220518 Active 2022 Gracie Mora APRN [address], [place], [address] , [employer] [facility] [employer] 4 09:51:18 Vitamin D deficiency 51772883 Active 2022 Gracie Mora APRN [address], [place], [address] , [employer] [facility] [employer] [facility] 4 09:52:28 Obesity 306366854 Active 2022 LILY [address], [place], [address] , [employer] [facility] [employer] 4 09:52:09 Mixed anxiety and depressive disorder 321951230 Active 2022 LILY [address], [place], [address] , [employer] [facility] [employer] [facility] 4 09:52:05 Abdominal bloating 642421769 Active 2017 LILY [address], [place], [address] , [employer] [facility] 4 09:56:52 Abnormal weight gain 236795769 Active 2011 LILY [address], [place], [address] , [employer] [facility] [employer] [facility] 4 09:56:52 Abdominal pain 31963334 Active 2012 LILY [address], [place], [address] , [employer] [facility] [employer] 4 09:56:52 test negative 531720018 Active 2010 Gracie Mora APRN [address], [place], [address] , [employer] [facility] 4 09:56:52 Hemorrhage of rectum and anus 913818563 Active 2018 Gracie Mora APRN [address], [place], [address] , [employer] [facility] [employer] 4 09:56:52 Malaise and fatigue 333575002 Active 2011 Gracie Mora APRN [address], [place], [address] , [employer] [facility] [employer] [facility] 4 09:56:52 Skin AND/OR mucosa finding 106426288 Active 2014 LILY Garcia [address], [place], [address] , [employer] [facility] [employer] 4 09:56:52 Atypical squamous cells of undetermined significance on cervical Papanicolaou smear 066219685 Active 2014 Gracie Mora APRN [address], [place], [address] , [employer] [facility] 4 09:56:52 Postcoital bleeding 99412694 Active 2020 LILY [address], [place], [address] , [employer] [facility] 4 09:56:52 Urinary tract infectious disease 42896260 Active 2010 Gracie Mora APRN [address], [place], [address] , [employer] [facility] 4 09:56:52 Prediabetes 237910292 Active 2021 LILY Garcia [address], [place], [address] , [facility] [employer] [facility] 4 09:56:52 Disorder of breast 55692688 Active 2016 Gracie Mora APRN [address], [facility] [address], [place], [address] , [facility] [employer] [facility] 4 09:56:52 Herpes simplex 39816298 Active 2020 Gracie Mora APRN [address], [facility] [address], [place], [address] , [facility] [employer] [facility] 4 09:56:52 Notes:Some problems listed i n Document: #[id number] could not be added to this patient's chart. Please review this document and add these problems to the patient's chart manually as needed. Problem Notes Documentation Provider Name and Address Organization Details Recorded Time Endocrinology Note : [facility] [employer] [place] [address] [facility] [address] [facility], [facility] [address]SLLOZQUD, Lisa (id #[id number], : 1985) Documents sent via fax will include the following message: This fax may contain sensitive and confidential personal health information that is being sent for the sole use of the intended recipient. Unintended recipients are directed to securely destroy any materials received. You are hereby notified that the unauthorized disclosure or other unlawful use of this fax or any personal health information is prohibited. To the extent patient information contained in this fax is subject to 42 CFR Part 2, this regulation prohibits unauthorized disclosure of these records. If you received this fax in error, please visit [email or web address] to notify the sender and confirm that the information will be destroyed. If you do not have internet access, please call to notify the sender and confirm that the information will be destroyed. Thank you for your attention and cooperation. [ID:[id number]][facility] [employer] [facility] [address] [place] [address] , Date: 01/11/2023RE: AKIL Anderson: 1985, PT ID #[id number] [facility], I would like to thank you for referring Lorraine Morrison to our practice for consultation and evaluation of new patient , on 01/11/2023. I have enclosed a copy of the office evaluation for your records. Once again, thank you for allowing me to participate in the care of this patient. Sincerely, Electronically Signed by: LUCY ABDI MD Encounter Reason/Date new patient 01/11/2023 - 02:00PM - [facility] [place] Problems:Reviewed Problems Pityriasis versicolor Hypoglycemia Anxiety disorder - Onset: 06/26/2018 Anxiety state Depressive disorder - Onset: 01/15/2019 Conjunctivitis Sinusitis Gastroesophageal reflux disease - Onset: 05/07/2017 Irritable bowel syndrome Irregular periods - Onset: 01/11/2023 Skin lesion Pain in limb Fatigue - Onset: 01/11/2023 Breath smells unpleasant Hyperglycemia - Onset: 01/11/2023 Tear of medial meniscus of knee - Onset: 09/21/2016, Right Knee pain Attention deficit hyperactivity disorder, predominantly inattentive type Breast lump Weight gain - Onset: 01/11/2023 Some problems listed in Document: #[id number] could not be added to this patient's chart. Please review this document and add these problems to the patient's chart manually as needed. Allergies: Reviewed Allergies SULFA (SULFONAMIDE ANTIBIOTICS) DRUG ALLERGIES WERE DURING CHILDHOOD Medications: Reviewed Medications NameDate Source dexAMETHasone 1 mg tablettake dexa tablet at 10 pm night before 8 am xhyylpzz21/29/23 prescribed Lucy Abdi MD escitalopram 10 mg tabletTAKE 1 TABLET BY MOUTH EVERY DAY12/07/22 filled surescripts Vitamin D3, Multivitamin, Family History:Reviewed Family History Mother - Chronic obstructive lung disease - Small cell carcinoma of lung Father - Hypertensive disorder Mother 57 living with COPD and Stage IV non small cell CA lung Father 75 living HTN CA Prostate One brother living good health Four sisters living good health Family hx of ISBELL Social History:Reviewed Social History Education and OccupationWhat is the highest grade or level of school you have completed or the highest degree you have received?: High school graduateWhat is your occupation?: secretaryDiet and ExerciseWhat type of diet are you following?: Specific (Notes: Intermittent fasting)Do you have any dietary restrictions?: NoSubstance UseDo you or have you ever smoked tobacco?: Never smokerDo you or have you ever used any other forms of tobacco or nicotine?: NoWhat was the date of your most recent tobacco screening?: 04/08/2021Has tobacco cessation counseling been provided?: No (Notes: not needed-never smoked)What is your level of alcohol consumption?: NoneDo you use any illicit or recreational drugs?: NoWhat is your level of caffeine consumption?: ModerateHome and EnvironmentWhere do you live?: Multi-level houseDo you have smoke and carbon monoxide detectors in your home?: YesAre you passively exposed to smoke?: NoAre there any guns present in your home?: NoDo you use sunscreen routinely?: YesPublic Health and TravelHave you recently traveled abroad?: NoIn the 14 days before symptom onset, have you had close contact with a laboratory-confirmed COVID-19 while that case was ill?: NoIn the 14 days before symptom onset, have you had close contact with a person who is under investigation for COVID-19 while that person was ill?: NoAdvance DirectiveDo you have a medical power of securities attorney?: NoMarriage and SexualityWhat is your relationship status?: MarriedLifestyleDo you wear a helmet when biking?: (Notes: does not bike)Do you use your seat belt or car seat routinely?: YesGender Identity and LGBTQ IdentityGender identity: Identifies as FemaleAssigned sex at : FemalePronouns: she/herSexual orientation: Straight or heterosexualSurgical HistoryReviewed Surgical History delivery - 2000 Procedure on adenoids - removal in 1989 Removal of tonsils Additional HistoryNone recordedHistory of Present Illness:37 yo female referred to our clinic for obesity, irregular cycles and fatigue. no labs completed to assess thyroid or hormonal function She had bloodwork completed at [facility] and was told her glucose was elevated. She was told weight loss would help with her glucose control. Trialed on phentermine and worked out at [facility] in July in 2019- she wasn't losing any weight even on phentermine and started having irregular cycles. Would bleed for 2-3 weeks straight. She hadn't worked out for a long time. She was then started on progesterone therapy and couldn't tolerate the progesterone due to swelling and water weight gain. She went off the medication. She then tried control pills and got her cycles under control. Then a year later trialed on phentermine and topamax combined and then she did lose 20 pounds and then decided her sugars were elevated - and trialed on metformin. She was almost having too much diarrhea and did not tolerate this at all. Then transitioned to victoza for a few months and had no weight loss on this- then mounjaro- 4th injection caused local reaction and had some shortness of breath. In Jul 2019 was 190 pounds and up to 220 pounds - down to 160 pounds recently. She is now scheduled for a partial hysterectomy on 03/09.Review of Systems: Patient reports normal appetite, no significant weight change, exercise; how often? , and no decrease in height;unable to lose weight. She reportsbrittle nailsbut reports no dry skin, no thin skin, no bruising tendency, no acne, no purple stretch butts, and no recurrent infections or slow healing wounds. She reportstired all the time, hair falling out, temperature intolerance to heat, and temperature intolerance to coldbut reports no low blood sugars, no excessive thirst (polydipsia), no increased hair growth (on face, chest, etc.), and no trouble sleeping. She reports no double vision (diplopia), no trouble with peripheral vision, not bulging (proptosis), no dry eyes, and no gritty eyes. She reports no difficulty swallowing (dysphagia), no hoarseness, no voice changes, no deepening of the voice, no lump or swelling, and no throat/neck pain. She reports no chest pain, no racing heart rate, and controlled blood pressure. She reports no shortness of breath, no snoring, and no sleep apnea. She reports no urinary frequency, not getting up at night to use bathroom, and no history of kidney stones. She reports no abdominal pain, no diarrhea, no constipation, no heartburn, no rectal bleeding, and does not use antacids. She reports no muscle weakness, no muscle aches, no joint pain, no bone pain, and no bone fractures. She reports able to brush hair without difficulty and able to get out of chair independently. She reports complies with diabetic diet, eats milk, cheese, or yogurt daily, calcium supplement, takes multivitamin, and vitamin D supplement. She reports no headaches, no confusion, no dizziness, no lightheadedness, no numbness or tingling in hands or feet, no night sweats, no confusion during middle of night, no excessive sweating, hands don't shake, and no frequent falls while walking. She reports no anxiety and no depression. She reports no trouble conceiving, no low sex drive or libido, able to reach orgasm, no painful intercourse, no hot flashes, no erectile dysfunction, no leakage of milk from nipples, and no vaginal dryness. Physical ExamConstitutional:General Appearance: not anxious/nervous, no sweating, andoverweight. Level of Distress: no acute distress. Eyes:Lids and Conjunctivae: no discharge, pallor, lid lag, or periorbital edema and non-injected. Neck:Neck: supple, trachea midline, no masses, and full range of motion. Thyroid: no enlargement or nodules and non-tender. Neck vessels: no carotid bruits or thyroid bruits. Lymph Nodes: no anterior cervical LAD, posterior cervical LAD, submandibular LAD, submental LAD, preauricular LAD, or supraclavicular LAD. Cardiovascular:Apical Impulse: not displaced. Heart Auscultation: normal S1 and S2; no murmurs, rubs, or gallops; and regular rate and rhythm. Lungs:Auscultation: no wheezing, rales/crackles, or rhonchi and breath sounds normal, good air movement, and clear to auscultation. Psychiatric:Mental Status: normal mood and affect, no diffuse anxiety or paranoid ideations, and active and alert.Procedure DocumentationNone recordedAssessment/Plan1. Weight gain-Will send for low dose dexa suppression testing to screen for hypercortisolic state. Send for full thyroid panel to screen for underlying hypothyroidism. Recommended she adhere to at least 1200 calorie per day intake with multiple small 300-400 calorie meals (4-5 small meals per day) on sedentary days up to 1800 calories on days she is able to undergo moderate level activity at least 30-40 minutes with 20 minutes of that time at 70% of her target heart rate in order to reach total caloric output and assist in weight loss. She is motivated and willing to go to gym daily and discussed cutting out GMOs along with preservatives and focusing on fruits, veggies, unprocessed beans and nuts along with meats for the bulk of her diet. Provided information on [facility] protein shakes- recommended up to 120 grams of protein daily and no more than 100 grams of carbs.R63.5: Abnormal weight gain TSH+FREE T4 CORTISOL, A.M. dexamethasone 1 mg tablet - take dexa tablet at 10 pm night before 8 am cortisol Qty: (1) tablet Refills: 1 Pharmacy: [facility] #[id number] DEXAMETHASONE 2. Irregular periods-Send for hormone panel to screen for any evidence of hyperandrogenic state.N92.6: Irregular menstruation, unspecified PROGESTERONE, LC/MS ESTRADIOL DHEA SULFATE TESTOSTERONE, FREE (DIALYSIS) AND TOTAL,MS PROLACTIN INSULIN 3. Fatigue-Will send for thyroid antibodies to screen for autoimmune thyroid disease in addition to CBC, CMP, ferritin and B12/folate to screen for other potential secondary causes of fatigue.R53.83: Other fatigue VITAMIN B12/FOLATE, SERUM PANEL THYROID PEROXIDASE ANTIBODIES T3, FREE IRON, TIBC AND FERRITIN PANEL IODINE, SERUM/PLASMA COMPREHENSIVE METABOLIC PANEL 4. Hyperglycemia-Send for fasting glucose/insulin. Discussed carb counting and how to read food labels. Recommended patient to utilize the diabetesfovideScreen Networks.vMobo from the ADA website to help with food preparation as this presents ideal carb content per meal so this will make carb counting much easier for patient. Recommended she incorporate natural insulin sensitizers such as pears, apples, cinnamon, mac and sweet potatoes to help mobilize her endogenous insulin. Recommended up to 150 minutes of moderate level activity/exercise weekly. Spent up to 45 minutes preparing to see the patient (eg, review of tests), obtaining and/or reviewing separately obtained history, performing a medically appropriate examination and evaluation, counseling and educating the patient, ordering medications, tests, along with documenting clinical information in the electronic health record, independently interpreting results and communicating results to the patient. Patient was provided a handwritten lab order which contains our fax number. If she chooses to go outside of the [facility] system to obtain labwork she was advised to provide our fax number and my information to the lab she will be obtaining labwork from in order to have her labs properly forwarded over for me to review so there is no loss of follow up due to use of outside network. She was also advised to contact our clinic informing us that she has completed her labwork so we are aware we will need to reach out to the appropriate laboratory to request her results be forwarded to us so I might have the ability to review and make further medical decision making in her case. She voiced understanding. Thank you for this consultation.R73.9: Hyperglycemia, unspecified INSULIN HEMOGLOBIN A1C Return to Office Lucy Abdi MD for Follow Up 15 at [facility] on 02/20/2023 at 11:45 AM VASYL Alcaraz-C [address] [place] [address], [phone], [facility] [employer] 01/12/2023 11:11:19 Endocrinology Consult Note : [facility]Student[facility]under [address], [facility] [id number], Lisa (id #[id number], : 1985) Documents sent via fax will include the following message: This fax may contain sensitive and confidential personal health information that is being sent for the sole use of the intended recipient. Unintended recipients are directed to securely destroy any materials received. You are hereby notified that the unauthorized disclosure or other unlawful use of this fax or any personal health information is prohibited. To the extent patient information contained in this fax is subject to 42 CFR Part 2, this regulation prohibits unauthorized disclosure of these records. If you received this fax in error, please visit [email or web address] to notify the sender and confirm that the information will be destroyed. If you do not have internet access, please call to notify the sender and confirm that the information will be destroyed. Thank you for your attention and cooperation. [ID:[id number]][facility] [address] [place] [address] , Date: 02/20/2023RE: AKIL Anderson: 1985, PT ID #[id number] [facility]p, I would like to thank you for referring Lorraine Morrison to our practice for consultation and evaluation of FU ON LABS , on 02/20/2023. I have enclosed a copy of the office evaluation for your records. Once again, thank you for allowing me to participate in the care of this patient. 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 Hypoglycemia Vitamin B12 deficiency (non anemic) - Onset: 02/20/2023 Iron deficiency anemia - Onset: 01/20/2023 Anxiety disorder - Onset: 06/26/2018 Anxiety state Depressive disorder - Onset: 01/15/2019 Conjunctivitis Sinusitis Gastroesophageal reflux disease - Onset: 05/07/2017 Irritable bowel syndrome Irregular periods - Onset: 01/11/2023 Skin lesion Pain in limb Fatigue - Onset: 01/11/2023 Breath smells unpleasant Impaired fasting glycemia - Onset: 02/20/2023 Hyperglycemia - Onset: 01/11/2023 Tear of medial meniscus of knee - Onset: 09/21/2016, Right Knee pain Attention deficit hyperactivity disorder, predominantly inattentive type Breast lump Weight gain - Onset: 01/11/2023 Some problems listed in Document: #[id number] could not be added to this patient's chart. Please review this document and add these problems to the patient's chart manually as needed. Allergies: Reviewed Allergies SULFA (SULFONAMIDE ANTIBIOTICS) DRUG ALLERGIES WERE DURING CHILDHOOD Medications: Reviewed Medications NameDate Source cyanocobalamin (vit B-12) 1,000 mcg/mL injection solutionInject 1 mL every week by subcutaneous route in the morning for 90 days.02/20/23 prescribed Lucy Abdi MD escitalopram 10 mg tabletTAKE 1 TABLET BY MOUTH EVERY DAY12/07/22 filled surescripts metFORMIN ER 500 mg tablet,extended release 24 hrTake 1 tablet(s) every day by oral route at dinner for 90 days.02/20/23 prescribed Lucy Abdi MD Vitamin B12 500 mcg tabletTake by oral route.02/20/23 entered Za Marc RN Vitamin D3 50 mcg (2,000 unit) tabletTake by oral route.02/20/23 entered Za Marc RN ONE A DAY WOMEN'S MULTIVITAMIN SLOW FE SLOW RELEASE IRON 45MG Family History:Family History not reviewed (last reviewed 01/11/2023) Mother - Chronic obstructive lung disease - Small cell carcinoma of lung Father - Hypertensive disorder Mother 57 living with COPD and Stage IV non small cell CA lung Father 75 living HTN CA Prostate One brother living good health Four sisters living good health Family hx of ISBELL Social History:Social History not reviewed (last reviewed 01/11/2023) Home and EnvironmentWhere do you live?: Multi-level houseDo you have smoke and carbon monoxide detectors in your home?: YesAre you passively exposed to smoke?: NoAre there any guns present in your home?: NoDo you use sunscreen routinely?: YesSubstance UseDo you or have you ever smoked tobacco?: Never smokerDo you or have you ever used any other forms of tobacco or nicotine?: NoWhat was the date of your most recent tobacco screening?: 04/08/2021Has tobacco cessation counseling been provided?: No (Notes: not needed-never smoked)What is your level of alcohol consumption?: NoneDo you use any illicit or recreational drugs?: NoWhat is your level of caffeine consumption?: ModerateEducation and OccupationWhat is the highest grade or level of school you have completed or the highest degree you have received?: High school graduateWhat is your occupation?: [employer] and TravelHave you recently traveled abroad?: NoIn the 14 days before symptom onset, have you had close contact with a laboratory-confirmed COVID-19 while that case was ill?: NoIn the 14 days before symptom onset, have you had close contact with a person who is under investigation for COVID-19 while that person was ill?: NoDiet and ExerciseWhat type of diet are you following?: Specific (Notes: Intermittent fasting)Do you have any dietary restrictions?: NoLifestyleDo you wear a helmet when biking?: (Notes: does not bike)Do you use your seat belt or car seat routinely?: YesAdvance DirectiveDo you have a medical power of securities attorney?: NoMarriage and SexualityWhat is your relationship status?: MarriedGender Identity and LGBTQ IdentityGender identity: Identifies as FemaleAssigned sex at : FemalePronouns: she/herSexual orientation: Straight or heterosexualSurgical HistorySurgical History not reviewed (last reviewed 01/11/2023) delivery - 2000 Procedure on adenoids - removal in 1989 Removal of tonsils Additional HistoryNone recordedHistory of Present Illness:37 yo female comes in for follow up in work up for management of weight gain, irregular cycles found to have impaired fasting glucose, B12 def and JERRICA likely secondary to heavy cycles. She has since started on iron supplements along with B12 daily supplement. She doesn't feel more energetic since doing the B12/iron levels. She feels her weight is going up since even her initial visit- her lowest weight was 167 mg/dL in 2021 and now up to 203 pounds. She was 170 pounds when her other glucose was 105 mg/dL. She did take metformin in the past and she did struggle with this / diarrhea. She then transitioned to victoza then up to mounjaro. She ended up with welts after her third injection. She has been off GLP 1 therapy and concerned to go back on something half-way if not necessary. She is going for partial hysterectomy at the end of the month- she is taking iron supplements. labs from 02/04:normal DST labs from 01/13/23:testosterone 25 ng/dLa1c 5.3%TSH of 1.69 uIU/mlFT4 of 1.0 ng/dLestradiol 70 pg/mLB12 353 pg/mLfolate normalglucose 100 mg/dLReview of Systems:ROS as noted in the HPIPhysical ExamConstitutional:General Appearance: not anxious/nervous, no sweating, andoverweight. Level of Distress: no acute distress. Eyes:Lids and Conjunctivae: no discharge, pallor, lid lag, or periorbital edema and non-injected. Neck:Neck: supple, trachea midline, no masses, and full range of motion. Thyroid: no enlargement or nodules and non-tender. Neck vessels: no carotid bruits or thyroid bruits. Lymph Nodes: no anterior cervical LAD, posterior cervical LAD, submandibular LAD, submental LAD, preauricular LAD, or supraclavicular LAD. Cardiovascular:Apical Impulse: not displaced. Heart Auscultation: normal S1 and S2; no murmurs, rubs, or gallops; and regular rate and rhythm. Lungs:Auscultation: no wheezing, rales/crackles, or rhonchi and breath sounds normal, good air movement, and clear to auscultation. Psychiatric:Mental Status: normal mood and affect, no diffuse anxiety or paranoid ideations, and active and alert.Procedure DocumentationNone recordedAssessment/Plan1. Kai thyroiditis-TSH and FT4 in range- recommended a thyroid supplement similar to actalin by Dr. Oz Orozco that contains, iodine, magnesium, manganese, carnitine and other elements to help maintain endogenous thyroid function and help to reduce swelling to take in meantime to help reduce time frame to burn out and to help with fatigue, hair thinning etc. Otherwise focus is to restrict processed foods and refined sugars from diet.E06.3: Autoimmune thyroiditis 2. Impaired fasting glycemia-Trial on low dose metformin as she has mild hyperglycemia. Recommended [facility] protein shake/supplement program as this incorporates natural insulin sensitizers / chromium and focuses on healthy protein/carb exchanges into diet to meet caloric demands. Recommended she adhere to at least 1200 calorie per day intake with multiple small 300-400 calorie meals (4-5 small meals per day) on sedentary days up to 1400 calories on days she is able to undergo moderate level activity at least 30-40 minutes with 20 minutes of that time at 70% of her target heart rate in order to reach total caloric output and assist in weight loss. She is motivated and willing to go to gym daily and discussed cutting out GMOs along with preservatives and focusing on fruits, veggies, unprocessed beans and nuts along with meats for the bulk of her diet.R73.01: Impaired fasting glucose metformin ER 500 mg tablet,extended release 24 hr - Take 1 tablet(s) every day by oral route at dinner for 90 days. Qty: (90) tablet Refills: 1 Pharmacy: [facility] #[id number] 3. Vitamin B12 deficiency (non anemic)-Trial on B12 injections as she does have fatigue even on oral supplementation. As far as iron supplementation- she will be getting partial hysterectomy at the end of the month so will likely no longer require iron supplementation when she no longer struggles from heavy cycles. Spent up to 25 minutes preparing to see the patient (eg, review of tests), obtaining and/or reviewing separately obtained history, performing a medically appropriate examination and evaluation, counseling and educating the patient, ordering medications, tests, along with documenting clinical information in the electronic health record, independently interpreting results and communicating results to the patient. Patient can be followed by PCP - she/he is aware of my resignation and last day of April 27. If needed his/her PCP can refer patient to another head tennis professional in the area. All questions /concerns answered and refills necessary at visit today.E53.8: Deficiency of other specified B group vitamins cyanocobalamin (vit B-12) 1,000 mcg/mL injection solution - Inject 1 mL every week by subcutaneous route in the morning for 90 days. Qty: (13) 1 mL vial Refills: 2 Pharmacy: [facility] #[id number] INSULIN SYRINGE U-100 WITH NEEDLE 1 ML 31 GAUGE X 5/16 - change B12 SQ once weekly x 90 days Qty: 13 Units Refills: 2 Supplier: [facility] #[id number] Return to Office CAROL Alcaraz for Any 15 at [facility] 15 on 03/27/2023 at 03:00 PM CAROL Alcaraz [address], [place], [address], [facility] [employer] 03/06/2023 09:41:56 Procedures Surgical History Date Name Laterality Status Provider Name and Address Organization Details Recorded Time Removal of tonsils completed Not Available [facility] 09/13/2022 04:59:11 procedure on adenoids completed Not Available [facility] 09/13/2022 04:59:11 delivery completed Not Available [facility] 09/13/2022 04:59:11 Hysterectomy, Partial completed Kelsey Falcon MA [place] [employer] 03/30/2023 15:55:18 Imaging Results None recorded. Procedure Notes None recorded. Medical Equipment None Reported. Allergies Allergen ID Allergen Name Allergen Category Reaction Reaction Severity Criticality Documentation Date Start Date Code Code System Note Provider Name and Address Organization Details Recorded Time 37395 sulfameth oxazole medicatio n Not available Not available Not available 10/06/2023 75016 RxNorm Gracie Mora, [employer] [address], [place], [address], Prizzm 4 09:50:55 63895 trimethop rim medicatio n Not available Not available Not available 10/06/2023 64241 RxNorm Loidabrenda TANMAY Caba null, Prizz[employer] 4 09:41:46 9267 Substance with sulfonami de structure and antibacte rial mechanism of action (substanc e) medicatio n Not available Not available Not available 09/13/2022 69180 8003 SNOMED Not Available [facility] 3 05:12:45 9268 codeine medicatio n rash Not available Not available 09/13/2022 2670 RxNorm Not Available [facility] 3 05:12:45 Medications Name Sig Start Date Stop Date Status Note LastModified by Organization Details LastModified Time amoxicill in 500 mg capsule active Not Available Not Available Not Available metformin 500 mg tablet TAKE 1 TABLET BY MOUTH EVERY DAY 01/11 completed Not Available Not Available Not Available venlafaxi ne ER 37.5 mg capsule,e xtended release 24 hr TAKE 1 CAPSULE BY MOUTH EVERY DAY 09/13 completed Not Available Not Available Not Available prednison e 10 mg tablet Take by oral route. active Not Available Not Available No t Available Celexa 10 mg tablet Take 1 tablet every day by oral route. active Not Available Not Available No t Available trazodone 50 mg tablet Take 1 tablet every day by oral route at bedtime. 11/08 completed Not Available Not Available Not Available azithromy canelo 250 mg tablet TAKE BY MOUTH DIRECTED 01/13 completed Not Available Not Available Not Available citalopra m 10 mg/5 mL oral solution take 10 millilit er by oral route every day 09/05 completed Not Available Not Available Not Available benzonata te 200 mg capsule Take 1 capsule 3 times a day by oral route. active Not Available Not Available No t Available metronida zole 0.75 % (37.5 mg/5 gram) vaginal gel INSERT ONE APPLICAT ORFUL VAGINALL Y AT BEDTIME FOR 5 DAYS 09/13 completed Not Available Not Available Not Available ondansetr on HCl 4 mg tablet 07/31 completed Not Available Not Available Not Available clobetaso l 0.05 % topical cream APPLY A THIN LAYER TO THE AFFECTED AREA TWICE DAILY FOR UP TO 14 DAYS 09/13 completed Not Available Not Available Not Available phentermi ne 15 mg capsule TAKE 1 CAPSULE BY MOUTH EVERY DAY 01/11 completed Not Available Not Available Not Available promethaz ine 6.25 mg-codein e 10 mg/5 mL syrup TAKE 5 ML BY MOUTH EVERY 6 HOURS NEEDED 09/13 completed Not Available Not Available Not Available topiramat e 25 mg tablet TAKE 1 TABLET BY MOUTH EVERY DAY 11/08 completed Not Available Not Available Not Available meclizine 12.5 mg tablet 07/31 completed Not Available Not Available Not Available phentermi ne 37.5 mg tablet TAKE 1 TABLET BY MOUTH DAILY IN THE MORNING 09/13 completed Not Available Not Available Not Available omeprazol e 40 mg capsule,d elayed release take 1 capsule by oral route every day before a meal 11/07 completed Not Available Not Available Not Available Mircette (28) 0.15 mg-0.02 mg (21)/0.01 mg (5) tablet take 1 tablet by oral route every day 07/22 completed Not Available Not Available Not Available amitripty line 50 mg tablet take 1 tablet (50MG) by oral route every day at bedtime 10/26 completed Not Available Not Available Not Available phentermi ne 30 mg capsule TAKE 1 CAPSULE BY MOUTH EVERY DAY 01/11 completed Not Available Not Available Not Available Gentak 0.3 % (3 mg/gram) eye ointment active Not Available Not Available Not Available Macrobid 100 mg capsule take 1 capsule (100MG) by oral route every 12 hours with food 02/02 completed Not Available Not Available Not Available oxycodone -acetamin ophen 5 mg-325 mg tablet TAKE 1 TABLET BY MOUTH EVERY 4 HOURS NEEDED FOR PAIN 03/30 completed Not Available Not Available Not Available amitripty line 25 mg tablet take 1 tablet (25MG) by oral route every day at bedtime active Not Available Not Available No t Available Kenalog 10 mg/mL suspensio n for injection In office injectio n administ ered by the provider 02/24 completed [facility]: [id number] 11-02 Not Available Not Available Not Available dexametha sone 1 mg tablet active Not Available Not Available Not Available Flagyl 500 mg tablet Take 1 tablet every 12 hours by oral route for 7 days. 08/04 completed Not Available Not Available Not Available cyanocoba bibi (vit B-12) 1,000 mcg/mL injection solution Inject 1 mL every week by subcutan eous route in the morning for 90 days. active Not Available Not Available No t Available Prozac 20 mg capsule take 1 capsule (20MG) by oral route every day in the morning 07/22 completed Not Available Not Available Not Available progester one micronize d 200 mg capsule TAKE 1 CAPSULE BY MOUTH EVERY DAY FOR 12 DAYS 09/13 completed Not Available Not Available Not Available Valtrex 1 gram tablet take 1 tablet by oral route every 12 hours 07/28 completed Not Available Not Available Not Available omeprazol e 20 mg capsule,d elayed release Take 1 capsule every day by oral route. active Not Available Not Available No t Available Adderall XR 10 mg capsule,e xtended release Take 1 capsule every day by oral route for 30 days. 09/24 completed Not Available Not Available Not Available insulin syringe U-100 with needle 1 mL 31 gauge x 5/16 USE TO INJECT B12 SUBCUTAN EOUSLY ONCE WEEKLY active Not Available Not Available No t Available monteluka st 10 mg tablet Take 1 tablet every day by oral route. 09/21 completed Not Available Not Available Not Available zolpidem 5 mg tablet 07/28 completed Not Available Not Available Not Available norethind ivelisse acetate 5 mg tablet TAKE 1 TABLET BY MOUTH EVERY DAY 01/13 completed Not Available Not Available Not Available methylpre dnisolone 4 mg tablets in a dose pack FOLLOW PACKAGE DIRECTIO NS 01/13 completed Not Available Not Available Not Available cefdinir 300 mg capsule Take 1 capsule every 12 hours by oral route. active Not Available Not Available No t Available fluticaso ne propionat e 50 mcg/actua tion nasal spray,janeth pension Inhale 2 sprays every day by intranas al route in the evening. 09/21 completed Not Available Not Available Not Available metformin ER 500 mg tablet,ex tended release 24 hr TAKE 1 TABLET BY MOUTH EVERY DAY AT DINNER active Not Available Not Available No t Available sertralin e 50 mg tablet take 1 tablet by oral route every day 11/07 completed Not Available Not Available Not Available dextroamp hetamine- amphetami ne 5 mg tablet TK 1 T PO BID 07/28 completed Not Available Not Available Not Available amoxicill in 875 mg-potass ium clavulana te 125 mg tablet TAKE 1 TABLET BY MOUTH TWICE DAILY 10/10 completed Not Available Not Available Not Available Adderall 10 mg tablet Take 1 tablet twice a day by oral route. active pt to sisal picker in [place] 09/08 Not Available Not Available Not Available neomycin- polymyxin -hydrocor t 3.5 mg-10,000 unit/mL-1 % ear drops,janeth p SHAKE LIQUID AND INSTILL 2 DROPS IN BOTH EARS FOUR TIMES DAILY FOR 7 DAYS active Not Available Not Available No t Available Amphetami ne Salt Combo 10 mg tablet 11/04 completed Not Available Not Available Not Available Vitamin And Mineral capsule Take by oral route. active Not Available Not Available No t Available Vitamins and Minerals tablet 08/04 completed Not Available Not Available Not Available Vitamin B12 500 mcg tablet Take by oral route. 03/30 completed Not Available Not Available Not Available escitalop zac 10 mg tablet TAKE 1 TABLET BY MOUTH EVERY DAY active Not Available Not Available No t Available Vitamin B-12 50 mcg lozenges 10/02 completed Not Available Not Available Not Available Zovirax 5 % topical cream apply by topical route 5 times every day to the affected area(s) 07/28 completed Not Available Not Available Not Available bupropion HCl XL 150 mg 24 hr tablet, extended release Take 1 tablet every day by oral route in the morning. 01/11 completed Not Available Not Available Not Available hydrocodo ne 7.5 mg-acetam inophen 325 mg/15 mL oral solution 08/03 completed Not Available Not Available Not Available topiramat e 50 mg tablet TAKE 1 TABLET BY MOUTH EVERY DAY 01/11 completed Not Available Not Available Not Available biotin 03/26 completed Not Available Not Available Not Available Valtrex 07/28 completed Not Available Not Available Not Available lidocaine (PF) 10 mg/mL (1 %) injection solution In office injectio n administ ered by the provider 02/24 completed [facility]: [id number] 6-17 Not Available Not Available Not Available Vitamin D3 50 mcg (2,000 unit) tablet Take by oral route. active Not Available Not Available No t Available Lo Loestrin Fe 1 mg-10 mcg (24)/10 mcg (2) tablet TAKE 1 TABLET BY MOUTH EVERY DAY WITH MEALS 01/11 completed Not Available Not Available Not Available Victoza 2-Zohaib 0.6 mg/0.1 mL (18 mg/3 mL) subcutane ous pen injector INJECT 1.8 MG UNDER THE SKIN EVERY DAY 01/11 completed Not Available Not Available Not Available Dyanavel XR 2.5 mg/mL oral 24 hr extended release suspensio n 07/28 completed Not Available Not Available Not Available Mounjaro 5 mg/0.5 mL subcutane ous pen injector Inject 5 mg by subcutan eous route. 10/10 completed Not Available Not Available Not Available Vitals Date Recorded Body mass index (BMI) Body height Oxygen saturation Oxygen saturation in Arterial blood by Pulse oximetry Heart rate Body temperature Body weight Systolic blood pressure Diastolic blood pressure Provider Name and Address Organization Details Last Updated DateTime 2 32.6 kg/m2 152.4 cm 98 % 98 % 74 /min 98.2 [degF] 87109.9 3 g 128 mm[Hg] 76 mm[Hg] Not Available [facility] 3 05:04:02 Date Recorded Body height Body mass index (BMI) Body weight Body temperature Heart rate Systolic blood pressure Diastolic blood pressure Provider Name and Address Organization Details Last Updated DateTime 3 152.4 cm 38.4 kg/m2 63886.2 6 g 97.9 [degF] 68 /min 124 mm[Hg] 80 mm[Hg] REBECA Thompson [place] - [facility] 3 15:06:34 Date Recorded Body height Body mass index (BMI) Body weight Respiratory rate Heart rate Body temperature Systolic blood pressure Diastolic blood pressure Provider Name and Address Organization Details Last Updated DateTime 3 152.4 cm 39.6 kg/m2 64918.2 5 g 14 /min 74 /min 98 [degF] 125 mm[Hg] 81 mm[Hg] Za Marc RN [facility] 3 12:40:28 Date Recorded Body height Body mass index (BMI) Body weight Body temperature Heart rate Oxygen saturation Oxygen saturation in Arterial blood by Pulse oximetry Systolic blood pressure Diastolic blood pressure Provider Name and Address Organization Details Last Updated DateTime 3 152.4 cm 39.3 kg/m2 64202.0 7 g 97.9 [degF] 88 /min 98 % 98 % 118 mm[Hg] 78 mm[Hg] Kelsey Falcon MA [facility] 3 15:57:20 Date Recorded Body height Body mass index (BMI) Body weight Heart rate Oxygen saturation Oxygen saturation in Arterial blood by Pulse oximetry Body temperature Systolic blood pressure Diastolic blood pressure Provider Name and Address Organization Details Last Updated DateTime 4 152.4 cm 41.8 kg/m2 21189.7 7 g 67 /min 98 % 98 % 96 [degF] 124 mm[Hg] 78 mm[Hg] Guerrero Caba CMA [facility] 4 09:38:49 Social History Question Answer Notes LastModified by Organizat ion Details LastModified Time Tobacco Smoking Status Never Smoker Octavia kam, [facility] 02/20/2023 12:37:29 Do You Have An Advance Directive? No [id number] Information not available 09/13/2022 What Is Your Level Of Alcohol Consumption? Moderate Information not available 03/30/2023 What Is Your Level Of Caffeine Consumption? Moderate [id number] Information not available 09/13/2022 In The 14 Days Before Symptom Onset, Have You Had Close Contact With A Laboratory-confi rmed COVID-19 While That Case Was Ill? No Information not available 02/20/2023 In The 14 Days Before Symptom Onset, Have You Had Close Contact With A Person Who Is Under Investigation For COVID-19 While That Person Was Ill? No Information not available 02/20/2023 What Type Of Diet Are You Following? REGULAR Information not available 03/30/2023 What Is The Highest Grade Or Level Of School You Have Completed Or The Highest Degree You Have Received? 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 No Information not available 02/20/2023 What Is The Fluoride Status Of Your Home? Unknown Information not available 02/20/2023 Are There Any Guns Present In Your Home? No Information not available 02/20/2023 Do You Use Insect Repellent Routinely? No Information not available 02/20/2023 Where Do You Live? [facility] Information not available 02/20/2023 Do You Have A Medical Power Of Parachutist/Combatant Diver Qualified? No Information not available 02/20/2023 What Was The Date Of Your Most Recent Tobacco Screening? 03/30/2023 Information not available 03/30/2023 Do You Have Any Pets? Yes Information not available 02/20/2023 What Is Your Relationship Status? [id number] Information not available 09/13/2022 Do You Use Your Seat Belt Or Car Seat Routinely? Yes Information not available 02/20/2023 Do You Have Smoke And Carbon Monoxide Detectors In Your Home? Yes Information not available 02/20/2023 Are You Passively Exposed To Smoke? No Information not available 02/20/2023 Are There Any Smokers In Your House? No Information not available 02/20/2023 What Types Of Sporting Activities Do You Participate In? None Information not available 02/20/2023 Do You Feel Stressed (tense, Restless, Nervous, Or Anxious, Or Unable To Sleep At Night)? [id number] Information not available 02/20/2023 Do You Use Any Illicit Or Recreational Drugs? No Information not available 02/20/2023 Do You Use Sunscreen Routinely? Yes Information not available 02/20/2023 Has Tobacco Cessation Counseling Been Provided? No Not Needed-ne aikra Smoked Information not available 02/20/2023 Have You Recently Traveled Abroad? No Information not available 02/20/2023 Do You Have Any Dietary Restrictions? No Information not available 02/20/2023 Do You Or Have You Ever Used Any Other Forms Of Tobacco Or Nicotine? No Information not available 02/20/2023 Sex: Female Functional Status Question Answer Note LastModified by Organization D etails LastModified Time What is your exercise level? None Information not available 03/30/2023 Mental Status None recorded. Family History Relationship Description Onset Age of this Age Resolved Age Notes LastModified by Organization Details LastModified Time Mother Chronic obstructive pulmonary disease [email or web address] Not available 2022 12:37:28 Mother Small cell carcinoma of lung akovach Not available 2022 12:37:28 Father Hypertensive disorder [id number] Not available 09/13/2022 04:59:16 Notes:Mother 57 living with COPD and Stage IV non small cell CA lung Father 75 living HTN CA Prostate One brother living good health Four sisters living good health Family hx of [place] Medical History Condition Response HAVE YOU BEEN HOSPITALIZED OR SEEN IN [facility] IN THE PAST YEAR ? Y ANXIETY DISORDER Y Gynecological History Statement/Question Response Abnormal Pap N Flow Heavy Date of LMP 02/02/2023 Frequency of Cycle (Q days) 24 Sexually Active? Y Menses Monthly Y STIs/STDs N HPV Vaccine Y Current Control Method None N Obstetrics History GPAL:G 0 P 0 0 0 0 Immunizations Vaccine Type Date Status Note Provider Van henriquez and Address Organization Details Recorded Time COVID-19, mRNA, LNP-S, PF, 30 mcg/0.3 mL dose 2 completed Gracie Mora APRN [address], [address], [place], [address], [place] [facility] 01/09/2024 08:25:53 COVID-19, mRNA, LNP-S, PF, 30 mcg/0.3 mL dose 2 completed Gracie Mora APRN [address], [address], [place], [address], [facility] [facility] 01/09/2024 08:25:53 COVID-19, mRNA, LNP-S, PF, 30 mcg/0.3 mL dose 2 completed Gracie Mora APRN [address], [address], [place], [address], [facility] [employer] [facility] 01/09/2024 08:25:53 Hep A, adult 8 completed Not Available [facility] 11/08/2022 12:44:46 Influenza, split virus, quadrivalent, preservative 7 completed Not Available [facility] 11/08/2022 12:44:46 Hep A, adult 7 completed Not Available [facility] 11/08/2022 12:44:46 Past Encounters Encounter ID Performer Location Encounter Start Date Encounter Closed Date Diagnosis/Indication Diagnosis SNOMED-CT Code Diagnosis ICD10 Code Diagnosis Note [id number] [facility] [place] [address] [place] [address] Ave[address] [facility] [address] [place] [address] 01/03/2021 00:00:00 01/03/2021 17:17:41 [id number] [facility] [address] [place], [place] [address]e., [address] [address] 02/08/2021 00:00:00 02/08/2021 13:36:50 [id number] [facility] [place] [address] [place] [address] Ave[address] [facility] [address] [place] [address] 03/11/2021 00:00:00 03/11/2021 21:11:04 [id number] [facility] [place] [address] [place] [address] Ave[address] [address] 04/08/2021 00:00:00 04/08/2021 11:18:50 [id number] [facility] [place] [address] [place] [address] Ave[address] [address] 05/06/2021 00:00:00 05/06/2021 15:27:56 [id number] [facility] [place] [address] [place] [address] [address] [place] [address] 06/07/2021 00:00:00 06/07/2021 10:31:55 [id number] [facility] [address] [place] [address] [address] [address] 07/07/2021 00:00:00 07/07/2021 18:06:54 [id number] [facility] [place] [address] [place] [address] [address] [address] 08/02/2021 00:00:00 08/02/2021 11:24:38 [id number] [facility] [place] [address] [place] [address] [address] [address] 01/13/2022 00:00:00 01/13/2022 17:23:37 [id number] Lucy Abdi MD [facility] [address] [place] [address] 01/11/2023 14:40:21 01/11/2023 15:57:07 Weight gain 6199670 R63.5 Will send for low dose dexa suppressio n testing to screen for hypercorti solic state. Send for full thyroid panel to screen for underlying hypothyroi dism. Recommende d she adhere to at least 1200 calorie per day intake with multiple small 300-400 calorie meals (4-5 small meals per day) on sedentary days up to 1800 calories on days she is able to undergo moderate level activity at least 30-40 minutes with 20 minutes of that time at 70% of her target heart rate in order to reach total caloric output and assist in weight loss. She is motivated and willing to go to gym daily and discussed cutting out GMOs along with preservati ves and focusing on fruits, veggies, unprocesse d beans and nuts along with meats for the bulk of her diet. Provided informatio n on [facility] [facility] wellness protein shakes- recommende d up to 120 grams of protein daily and no more than 100 grams of carbs. Irregular periods 951911 07 N92.6 Send for hormone panel to screen for any evidence of hyperandro genic state. Fatigue 10845720 R53.83 Will send for thyroid antibodies to screen for autoimmune thyroid disease in addition to CBC, CMP, ferritin and B12/folate to screen for other potential secondary causes of fatigue. Hyperglycemia 22863324 R 73.9 Send for fasting glucose/in sulin. Discussed carb counting and how to read food labels. Recommende d patient to utilize the [employer] from the ADA website to help with food preparatio n as this presents ideal carb content per meal so this will make carb counting much easier for patient. Recommende d she incorporat e natural insulin machine zipper trimmer s such as pears, apples, cinnamon, mac and sweet potatoes to help mobilize her endogenous insulin. Recommende d up to 150 minutes of moderate level activity/e xercise weekly. Spent up to 45 minutes preparing to see the patient (eg, review of tests), obtaining and/or reviewing separately obtained history, performing a medically appropriat e examinatio n and evaluation , counseling and educating the patient, ordering medication s, tests, along with documentin g clinical informatio n in the electronic health record, independen tly interpreti ng results and communicat ing results to the patient. Patient was provided a handwritte n lab order which contains our fax number. If she chooses to go outside of the [facility] system to obtain labwork she was advised to provide our fax number and my informatio n to the lab she will be obtaining labwork from in order to have her labs properly forwarded over for me to review so there is no loss of follow up due to use of outside network. She was also advised to contact our clinic informing us that she has completed her labwork so we are aware we will need to reach out to the appropriat e laboratory to request her results be forwarded to us so I might have the ability to review and make further medical decision making in her case. She voiced understand ing. Thank you for this consultati on. [id number] Lucy Abdi MD [facility] [address] [place] [address] 02/20/2023 12:36:14 02/20/2023 14:14:09 Kai thyroiditis 54230820 E06.3 TSH and FT4 in range- recommende d a thyroid supplement similar to actalin by Dr. Oz Orozco that contains, iodine, magnesium, manganese, carnitine and other elements to help maintain endogenous thyroid function and help to reduce swelling to take in meantime to help reduce time frame to burn out and to help with fatigue, hair thinning etc. Otherwise focus is to restrict processed foods and refined sugars from diet. Impaired f asting glycemia 533908572 R73.01 Trial on low dose metformin as she has mild hyperglyce celso. Recommende d [facility] e wellness protein shake/supp lement program as this incorporat es natural insulin machine zipper trimmer s / chromium and focuses on healthy protein/ca rb exchanges into diet to meet caloric demands. Recommende d she adhere to at least 1200 calorie per day intake with multiple small 300-400 calorie meals (4-5 small meals per day) on sedentary days up to 1400 calories on days she is able to undergo moderate level activity at least 30-40 minutes with 20 minutes of that time at 70% of her target heart rate in order to reach total caloric output and assist in weight loss. She is motivated and willing to go to gym daily and discussed cutting out GMOs along with preservati ves and focusing on fruits, veggies, unprocesse d beans and nuts along with meats for the bulk of her diet. Vitamin B1 2 deficiency (non anemic) 53477630 E53.8 Trial on B12 injections as she does have fatigue even on oral supplement ation. As far as iron supplement ation- she will be getting partial hysterecto my at the end of the month so will likely no longer require iron supplement ation when she no longer struggles from heavy cycles. Spent up to 25 minutes preparing to see the patient (eg, review of tests), obtaining and/or reviewing separately obtained history, performing a medically appropriat e examinatio n and evaluation , counseling and educating the patient, ordering medication s, tests, along with documentin g clinical informatio n in the electronic health record, independen tly interpreti ng results and communicat ing results to the patient. Patient can be followed by PCP - she/he is aware of my resignatio n and last day of April 27. If needed his/her PCP can refer patient to another endocrinol ogist in the area. All questions /concerns answered and refills necessary at visit today. [id number] CAROL Alcaraz [facility] [address] [facility] [place] [address] 03/30/2023 15:45:49 03/30/2023 16:25:50 Adult health examination 670201333 Z00.01 Cobalamin deficiency 190 069479 E53.8 On B12 shots from EndoAdvise d patient we can take those over when she runs out a script she will have to come into the office for these Impaired f asting glycemia 596062823 R73.01 On metforminA dvised patient we can take over the script when hers runs out Vitamin D deficiency 347 92020 E55.9 On OTC supplement Iron defic iency anemia 34777043 D50.9 On OTC supplement She decided not to go to the hematologi st as she was having her hysterecto my Hyperlipid emia screening 591690150 Z13.220 Kai thyroiditis 21 506090 E06.3 TSH and T4 were stable on last labsContin ue to work on avoiding highly processed foods, encouraged exercise most days of the week Depression screening 171 972294 Z13.31 Obesity 367930999 E66.9 recommend healthy, well balanced mealsfocus on lean meats, fresh vegetables , fresh fruits, whole grainsredu ce fast/proce ssed foods or eating out to no more than 1-2 times per weekaim to get 30 min of exercise most days of the week- walking is a great choicealso recommend resistance training 2-3 times per week Mixed anxi ety and depressive disorder 329704509 F41.8 on lexapro from GYNcall office if any change in mood or behavior [id number] Gracie Mora APRN [facility] Internal Med [facility] [address] [facility] [place] [address] 10/11/2023 09:30:59 10/11/2023 10:16:24 Obesity 960898706 E66.9 Impaired f asting glycemia 188409446 R73.01 Health Concerns Section Related Observation LastModified by Organization Detai ls LastModified Time None Recorded Concern Status LastModified by Organization Details LastModified Time None Recorded Advance Directives Directive N: Payers Encounter Date Sequence Insurance Name Policy Number Policy Jackson Covered Member ID Jackson Member ID Guarantor Name 01/11/2023 1 [place] [id number] Lorraine L Schoeber [id number] Lorraine Schoeber 02/20/2023 1 [place] [id number] Lorraine L Schoeber [id number] Lorraine Schoeber 03/30/2023 1 [place] [id number] Lorraine L Schoeber [id number] Lorraine Schoeber 10/11/2023 1 [place] [id number] Lorraine L Schoeber [id number] Lorraine Schoeber Notes Date Note Type Note Provider Name and Address Organization Details Recorded Time 01/11/2023 text/html 37 yo female ref erred to our clinic for obesity, irregular cycles and fatigue. no labs completed to assess thyroid or hormonal function She had bloodwork completed at [facility] and was told her glucose was elevated. She was told weight loss would help with her glucose control. Trialed on phentermine and worked out at [facility] in July in 2019- she wasn't losing any weight even on phentermine and started having irregular cycles. Would bleed for 2-3 weeks straight. She hadn't worked out for a long time. She was then started on progesterone therapy and couldn't tolerate the progesterone due to swelling and water weight gain. She went off the medication. She then tried control pills and got her cycles under control. Then a year later trialed on phentermine and topamax combined and then she did lose 20 pounds and then decided her sugars were elevated - and trialed on metformin. She was almost having too much diarrhea and did not tolerate this at all. Then transitioned to victoza for a few months and had no weight loss on this- then mounjaro- 4th injection caused local reaction and had some shortness of breath. In Jul 2019 was 190 pounds and up to 220 pounds - down to 160 pounds recently. She is now scheduled for a partial hysterectomy on 03/09. Lucy Abdi MD [address] [facility], [place] [address], [place], [address], [facility] [employer] [facility] 01/11/2023 17:28:03 02/20/2023 text/html 37 yo female com es in for follow up in work up for management of weight gain, irregular cycles found to have impaired fasting glucose, B12 def and JERRICA likely secondary to heavy cycles. She has since started on iron supplements along with B12 daily supplement. She doesn't feel more energetic since doing the B12/iron levels. She feels her weight is going up since even her initial visit- her lowest weight was 167 mg/dL in 2021 and now up to 203 pounds. She was 170 pounds when her other glucose was 105 mg/dL. She did take metformin in the past and she did struggle with this / diarrhea. She then transitioned to victoza then up to mounjaro. She ended up with welts after her third injection. She has been off GLP 1 therapy and concerned to go back on something long term care phlebotomist if not necessary. She is going for partial hysterectomy at the end of the month- she is taking iron supplements. labs from 02/04:normal DST labs from 01/13/23:testosterone 25 ng/dLa1c 5.3%TSH of 1.69 uIU/mlFT4 of 1.0 ng/dLestradiol 70 pg/mLB12 353 pg/mLfolate normalglucose 100 mg/dL Lucy Abdi MD [address], [facility] [address], [place], [address], [facility] 02/20/2023 13:54:19 03/30/2023 text/html Lorraine presents to day for annual wellness exam. She had her hysterectomy about 3 weeks ago, she reports she had a rough first week, but now she is feeling much better. Her head tennis professional had referred her to see shredded filler cutter operator for the low iron, she was not able to get until May. She decided not to make that appointment as she knew she was having her hysterectomy. She is on oral iron. Her head tennis professional is resigning so she is asking me to take over her metformin and her B12 injections. She is on mood meds from her HYDRAULIC PILE HAMMER OPERATOR. She denies any SI/HI today. She will need repeat labs in May. CAROL Alcaraz [address], [facility] [address], [place], [address], [facility] 03/30/2023 17:29:42 10/11/2023 text/html Lorraine presents to day to establish care. She states that she has been steadily gaining weight over the past 2 years. Her BMI went from 32 to 41 in 18 months. She works 2 jobs that are not sedentary and states that she eats healthy. She states that her AQUATICS MANAGER sent her to a concrete inspector for over a year. Denies changes in vision although she states she wears contact lenses and her vision is horrible without them. She admits to back, leg and feet pain. 03/30/2023Lorraine presents today for annual wellness exam. She had her hysterectomy about 3 weeks ago, she reports she had a rough first week, but now she is feeling much better. Her head tennis professional had referred her to see shredded filler cutter operator for the low iron, she was not able to get until May. She decided not to make that appointment as she knew she was having her hysterectomy. She is on oral iron. Her head tennis professional is resigning so she is asking me to take over her metformin and her B12 injections. She is on mood meds from her HYDRAULIC PILE HAMMER OPERATOR. She denies any SI/HI today. She will need repeat labs in May. Gracie Mora APRN [address], [address], [place], [address], [facility] 10/11/2023 10:10:50 OBGyn Episode No OBEpisode recorded.
--- OUTSIDE RECORDS SUMMARY | 2024-09-29 10:59 | XMS_ITS | Clinical Summary ---
Author Organization [facility] Address [address] [place] [address] Phone Care Team Providers Care Bodywork Therapist Name Role Phone Unavailable Unavailable Unavailable Reason for Visit and Chief Complaint NEW PATIENT VISIT Plan of Treatment No Plan of Treatment Recorded Assessments Includes: Assessments from this encounter No Assessments Recorded Medical Equipment - Implanted Devices Includes: Current Devices No Medical Equipment Recorded Medications Administered Includes: Administered Medications from this encounter No Administered Medications Recorded Results Includes: Results discussed during this encounter No Results Recorded For Specified Dates History of Present Illness Includes: History of Present Illness from this encounter No History of Present Illness Recorded Social History No Social History Recorded - Smoking Status Unknown Medical History Includes: Medical History addressed during this encounter No Medical History Recorded Family History Includes: Family History addressed during this encounter No Family History Recorded Review of Systems Includes: Review of Systems from this encounter No Review of Systems Recorded Mental Status Includes: Mental Status from this encounter No Mental Status Recorded Functional Status Includes: Functional Status from this encounter No Functional Status Recorded Physical Exam Includes: Physical Exam from this encounter No Physical Exam Recorded Encounters Encounter Provider Location Date Check-In Time Check- Out Time Diagnosis NEW PATIENT VISIT BREN ENAMORADO-PSYCHIA TRY 2 2:46PM 3:52PM Clinical Notes Includes: Clinical Notes from this encounter No Clinical Notes Recorded
--- OUTSIDE RECORDS SUMMARY | 2024-09-29 10:59 | XMS_ITS ---
Author Organization [facility] Address [address] [place] [address] Phone Care Team Providers Care Pinner Printed [employer] Boards Name Role Phone Unavailable Unavailable Unavailable Plan of Treatment No Plan of Treatment Recorded Assessments Includes: Assessments for all patient encounters No Assessments Recorded Medical Equipment - Implanted Devices Includes: Current and historical Devices No Medical Equipment Recorded Medications Administered Includes: Administered Medications in patient's chart No Administered Medications Recorded Results Includes: Results from 09/30/2023 through 09/29/2024 No Results Recorded For Specified Dates History of Present Illness History of Present Illness not supported for this document type No History of Present Illness Recorded Social History No Social History Recorded - Smoking Status Unknown Medical History Includes: Medical History in patient's chart No Medical History Recorded Family History Includes: Family History in patient's chart No Family History Recorded Review of Systems Review of Systems not supported for this document type No Review of Systems Recorded Mental Status No Mental Status Recorded Functional Status No Functional Status Recorded Physical Exam Physical Exam not supported for this document type No Physical Exam Recorded Clinical Notes Includes: Signed Clinical Notes starting from 08/04/2022 No Clinical Notes Recorded
--- OUTSIDE RECORDS SUMMARY | 2024-09-29 10:59 | XMS_ITS | Clinical Summary ---
Author Organization [facility] Address [address] [place] [address] Care Team Providers Care Drafter Engineering Name Role Phone Unavailable Primary Care Provider Unavailabl e Source Comments [facility],non-owned Affiliates and Associated Physician Practices is amultiple site organization consisting of ambulatory clinics and hospital sitesin [place], [place], [place] and [place]. This disclosure is being madepursuant to the Care Everywhere program and may not contain all information available regarding this patient. Last updated 18.[facility] Allergies Active Allergy Reactions Criticality Noted Date [...] MCG/ACT nasal sprayIndications:Eus tachian tube dysfunction, bilateral [place] 2 Sprays into each nostril once daily [...] Comments Blood Pressure 124/78 06/13/2016 9:51 AM DOG LICENSER Pulse 76 06/13/2016 9:51 AM DOG LICENSER Temperature 36.8 C (98.3 F) 06/13/2016 9:51 AM DOG LICENSER Respiratory Rate 18 06/13/2016 9:51 AM DOG LICENSER Oxygen Saturation - - Inhaled Oxygen Concentration - - Weight 68 kg (150 lb) 06/13/2016 9:51 AM DOG LICENSER Height 152.4 cm (5') 06/13/2016 9:51 AM DOG LICENSER Body Mass Index 29.29 06/13/2016 9:51 AM DOG LICENSER Plan of Treatment Health Maintenance Due Date Last Done Comments PAP SMEAR 1984 HIV SCREENING 10/23/1999 HEPATITIS C SCREENING 10/18/2002 DTAP/TDAP/TD VACCINES (1 - Tdap) 10/23/2003 HEPATITIS B VACCINE (1 of 3 - 19+ 3-dose series) 10/23/2003 COVID-19 VACCINE ( - 2023-2 5 season) 2024 INFLUENZA VACCINE (#1) 2024 DEPRESSION SCREENING 07/16/2024 ZOSTER VACCINE (1 of 2) 2034 HIB VACCINE Aged Out No longer eligi ble based on patient's age to complete this topic HPV VACCINE Aged Out No longer eligi ble based on patient's age to complete this topic MENINGOCOCCAL (Group B) VACC INE SHARED DECISION-MAKING Aged Out No longer eligibl e based on patient's age to complete this topic MENINGOCOCCAL GROUPS A/C/Y/W VACCINE Aged Out No longer eligible b ased on patient's age to complete this topic PNEUMOCOCCAL VACCINE Aged Out No long er eligible based on patient's age to complete this topic
--- OUTSIDE RECORDS SUMMARY | 2024-09-29 10:59 | XMS_ITS | Patient Health Summary ---
Author Organization [facility] Address [address] [place] [address] Care Team Providers Care Roller Skater Name Role Phone Unavailable Primary Care Provider Unavailabl e Note from [facility],non-owned Affiliates and Associated Physician Practices is amultiple site organization consisting of ambulatory clinics and hospital sitesin [place], [place], [place] and [place]. This disclosure is being madepursuant to the Care Everywhere program and may not contain all information available regarding this patient. Last updated 18.[facility] Allergies * Codeine * Sulfa Drugs Medications * Be aware that medications may not be up to date on this document. Alwaysverify current medications with the patient. * amphetamine-dextroamphetamine (ADDERALL) 10 MG tablet Take 10 mg by mouth every morning * fluticasone propionate (FLONASE) 50 MCG/ACT nasal spray(Started 06/13/2016) [place] 2 Sprays into each nostril once daily * ondansetron (ZOFRAN) 4 MG tablet(Started 06/13/2016) Take 1 Tab by mouth every 8 hours as needed for Nausea/Vomiting * meclizine (ANTIVERT) 12.5 MG tablet(Started 06/13/2016) Take 1 Tab by mouth 3 times daily as needed for Dizziness Social History Tobacco Use Types Packs/Day Years Used Date Smoking Tobacco: Never Sex and Gender Information Value Date Recorded Sex Assigned at Not on file Gender Identity Not on file Sexual Orientation Not on file Last Filed Vital Signs Vital Sign Reading Time Taken Comments Blood Pressure 124/78 06/13/2016 9:51 AM GREY IRON MOLDER Pulse 76 06/13/2016 9:51 AM GREY IRON MOLDER Temperature 36.8 C (98.3 F) 06/13/2016 9:51 AM GREY IRON MOLDER Respiratory Rate 18 06/13/2016 9:51 AM GREY IRON MOLDER Oxygen Saturation - - Inhaled Oxygen Concentration - - Weight 68 kg (150 lb) 06/13/2016 9:51 AM GREY IRON MOLDER Height 152.4 cm (5') 06/13/2016 9:51 AM GREY IRON MOLDER Body Mass Index 29.29 06/13/2016 9:51 AM GREY IRON MOLDER
== END 2024-09-29 09:46 | disposition home or self-care (01) ==
PROVIDERS: PCP Family Medicine; Visit Provider Surgery
DX: N63.21 Unspecified lump in the left breast, upper outer quadrant (principal); R92.8 Other abnormal and inconclusive findings on diagnostic imaging of breast
CPT/HCPCS: 77049; A9579; C8908

== ENCOUNTER 2025-03-26 12:50 | Outpatient (CLI) | payer BC, SELFPAY ==
--- NOTE | ~2025-03-26 | US_ITS ---
EXAMINATION: US breast LT limited HISTORY: 39-year-old female presents for follow-up left breast ultrasound. Patient was evaluated for left breast mass that she felt with diagnostic mammogram with ultrasound in August 2024 and bilateral breast MRI completed on 09/29/2024 which were all reported as negative. COMPARISON: Imaging studies completed on 09/04/2024 through 12/11/2019 FINDINGS: Targeted ultrasound at the area of the patient's palpable lump at the 1:00 to 2:00 position of the left breast, reveals no discrete cystic or solid lesions. IMPRESSION: BI-RADS 1, NEGATIVE RECOMMENDATION: Recommend continued screening mammography in August 2025. Clinical management of patient's palpable lump. Reviewed, dictated and finalized at location B.
--- OUTSIDE RECORDS SUMMARY | 2025-03-26 14:29 | XMS_ITS | Clinical Summary ---
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 Gender Identity Not on file Sexual Orientation Not on file Obstetrics History Last Filed Vital Signs Vital Sign Reading Time Taken Comments Blood Pressure - - Pulse - - Temperature - - Respiratory Rate - - Oxygen Saturation - - Inhaled Oxygen Concentration - - Weight 83.9 kg (185 lb) 08/12/2020 8:21 AM POKER ROOM MANAGER Height 152.4 cm (5') 08/12/2020 8:21 AM POKER ROOM MANAGER Body Mass Index 36.13 08/12/2020 8:21 AM POKER ROOM MANAGER Plan of Treatment Health Maintenance Due Date Last Done Comments Cervical Cancer Screening 1984 Depression Screening 1984 Hepatitis C Screening 1984 DTaP/Tdap/Td Vaccine (1 - Tdap) 10/23/1995 Varicella Vaccines (1 of 2 - 13+ 2-dose series) 1997 Hepatitis B Screening 2002 Regular Well Visit/Exam 18-64 2002 HPV Vaccines (1 - 3-dose SCD M series) 10/23/2011 Breast Cancer Screening-Mammogram 12/10/2020 12/11/2019 Covid-19 Vaccine (3 - 2024-2 6 season) 2025 08/18/2021, 07/28/2021 Influenza Vaccine (#1) 2025 07/13/2017 Pneumococcal vaccine <65 Aged Out No longer eligible based on patient's age to complete this topic Procedures Procedure Name Priority Date/Time Associated Diagnosis Comments DIAGNOSTIC MAMMOGRAM BILATERAL [facility] [place] Schedule Routine, Read Routine (OP Routine) 12/11/2019 2:44 PM CDT Lump of left breast from Last 3 Months or Most Recently Relevant to Health Maintenance Results * Diagnostic Mammogram Bilateral [place] (12/11/2019 2:44 PM CDT) Anatomical Region Laterality Modality Breast Bilateral Mammography 12/11/2019 4:12 PM CDT Impressions 12/11/2019 4:12 PM CDT 1. No imaging correlate for the left nipple pain for which clinical follow-up is recommended. 2. The palpable lump in the upper outer left breast corresponds with a fibrofatty lesion possibly hamartoma which is difficult to measure but probably about 4.2 cm in size. This is equivocal as the adjacent breast tissue is very similar appearing. The findings are stable on imaging suggesting a chronic benign finding. OVERALL FINAL ASSESSMENT: BI-RADS Category 2: Benign. Continued clinical follow-up is recommended. Unless earlier screening is clinically indicated, recommend annual screening mammography beginning at 40 years of age. Electronically signed by: Lorraine Bernardo M.D. Narrative 12/11/2019 4:12 PM CDT EXAMINATION: BILATERAL DIGITAL DIAGNOSTIC MAMMOGRAM INCLUDING CAD AND BILATERAL DIGITAL BREAST TOMOSYNTHESIS; LEFT BREAST SONOGRAM HISTORY: 34-year-old woman with history of chronic lump left upper outer quadrant reported by previous ultrasound to be a 6 cm hamartoma based on study from 05/21/2017. The patient reports she has a new physician that did not like to way it felt and requested the mass to be rechecked. Left nipple tenderness for 3 weeks. 35 pound weight gain since prior mammogram. COMPARISON: Prior mammograms most recent left diagnostic of 11/10/2016 and older studies dating back to 2009. Prior breast ultrasound most recent of 05/21/2017 TECHNIQUE: Full field digital mammographic views of BOTH breasts were performed, including computer aided detection (CAD) and digital breast tomosynthesis (DBT). Directed ultrasound evaluation of the LEFT breast was performed. BREAST PARENCHYMAL COMPOSITION: There are scattered areas of fibroglandular density. MAMMOGRAM FINDINGS: Breast density is slightly decreased bilaterally with slight increasing fatty tissue likely due to interval weight gain. Skin marker placed over the chronic palpable lump upper outer left breast. Just deep to this is a lobulated fibrofatty tissue mostly ovoid fatty areas. This includes a possibly encapsulated lesion with gently lobulated border predominantly fat density which is difficult to measure but probably 4.2 x 2.1 cm. The appearance of the lesion is stable mammographically. No new suspicious findings in either breast. SONOGRAM FINDINGS: Sonography in the area of nipple pain including the subareolar breast is unremarkable. In the area of the palpable lump 1:30 position 8 cm from the nipple left breast there is fibrofatty tissue with an equivocal encapsulated fibrofatty lesion measuring 4.5 x 2.3 cm consistent with equivocal hamartoma versus unremarkable fibrofatty tissue. Procedure Note Lorraine Bernardo MD - 12/11/2019 EXAMINATION: BILATERAL DIGITAL DIAGNOSTIC MAMMOGRAM INCLUDING CAD AND BILATERAL DIGITAL BREAST TOMOSYNTHESIS; LEFT BREAST SONOGRAM HISTORY: 34-year-old woman with history of chronic lump left upper outer quadrant reported by previous ultrasound to be a 6 cm hamartoma based on study from 05/21/2017. The patient reports she has a new physician that did not like to way it felt and requested the mass to be rechecked. Left nipple tenderness for 3 weeks. 35 pound weight gain since prior mammogram. COMPARISON: Prior mammograms most recent left diagnostic of 11/10/2016 and older studies dating back to 2009. Prior breast ultrasound most recent of 05/21/2017 TECHNIQUE: Full field digital mammographic views of BOTH breasts were performed, including computer aided detection (CAD) and digital breast tomosynthesis (DBT). Directed ultrasound evaluation of the LEFT breast was performed. BREAST PARENCHYMAL COMPOSITION: There are scattered areas of fibroglandular density. MAMMOGRAM FINDINGS: Breast density is slightly decreased bilaterally with slight increasing fatty tissue likely due to interval weight gain. Skin marker placed over the chronic palpable lump upper outer left breast. Just deep to this is a lobulated fibrofatty tissue mostly ovoid fatty areas. This includes a possibly encapsulated lesion with gently lobulated border predominantly fat density which is difficult to measure but probably 4.2 x 2.1 cm. The appearance of the lesion is stable mammographically. No new suspicious findings in either breast. SONOGRAM FINDINGS: Sonography in the area of nipple pain including the subareolar breast is unremarkable. In the area of the palpable lump 1:30 position 8 cm from the nipple left breast there is fibrofatty tissue with an equivocal encapsulated fibrofatty lesion measuring 4.5 x 2.3 cm consistent with equivocal hamartoma versus unremarkable fibrofatty tissue. IMPRESSION: 1. No imaging correlate for the left nipple pain for which clinical follow-up is recommended. 2. The palpable lump in the upper outer left breast corresponds with a fibrofatty lesion possibly hamartoma which is difficult to measure but probably about 4.2 cm in size. This is equivocal as the adjacent breast tissue is very similar appearing. The findings are stable on imaging suggesting a chronic benign finding. OVERALL FINAL ASSESSMENT: BI-RADS Category 2: Benign. Continued clinical follow-up is recommended. Unless earlier screening is clinically indicated, recommend annual screening mammography beginning at 40 years of age. Electronically signed by: Lorraine Bernardo M.D. Michelle Hurley NP IMG MAMMO PROCEDURES Final Result from Last 3 Months or Most Recently Relevant to Health Maintenance Insurance Living Proof [place] Living Proof [place] Living Proof [place] Care Teams Addictions Therapist Relationship Specialty Start Date End Date Victorino Clark DO [address] [place] [address] PCP - General Family Medicine 06/24/24 Alexia Alfredo MD Referring Physician Obstetrics and Gynecology 08/12/20
== END 2025-03-26 12:51 | disposition home or self-care (01) ==
LOC: ANHFOHIMG 12:50
PROVIDERS: PCP Family Medicine; Visit Provider Surgery
DX: N63.21 Unspecified lump in the left breast, upper outer quadrant (principal)
CPT/HCPCS: 76642